=== PATIENT | male | born 1940 | race Caucasian/White ===

== ENCOUNTER → 2017-07-12 09:03 | Outpatient (CLI) | payer MEDICARE, SELFPAY | PROVIDERS: Family Provider Family Medicine; PCP Family Medicine; Visit Provider Urology | DX: Z12.5 Encounter for screening for malignant neoplasm of prostate (principal) | CPT/HCPCS: 36415; 84153 ==

== ENCOUNTER → 2018-04-29 16:45 | Outpatient (CLI) | payer MEDICARE, SELFPAY ==
[2018-01-29 13:19] VITALS: BMI 31.5
== END ==
PROVIDERS: Family Provider Family Medicine; PCP Family Medicine; Referring Provider Urology; Visit Provider Urology
DX: R31.9 Hematuria, unspecified (principal)
CPT/HCPCS: 87086

== ENCOUNTER 2018-08-23 08:33 | Day surgery (SDC) | payer MEDICARE, SELFPAY ==
--- NOTE | 2018-08-09 03:03 | HP_ITS ---
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 Is patient in pain?: No Allergies amoxicillin [From Augmentin] Allergy (Verified 08/09/18 13:23) Rash clavulanic acid [From Augmentin] Allergy (Verified 08/09/18 13:23) Rash erythromycin base Allergy (Verified 08/09/18 13:23) Rash Penicillins Allergy (Verified 08/09/18 13:23) Rash ranitidine [From Zantac] Adverse Reaction (Verified 08/09/18 13:23) Upset Stomach Medications Multivitamin [Daily Multiple Vitamin] 1 ea PO DAILY 09/22/16 [History Confirmed 08/09/18] [place]-3 Fatty Acids [Fish Oil] 500 mg PO DAILY 09/22/16 [History Confirmed 08/09/18] lisinopril 20 mg tablet 20 mg PO DAILY #90 tab 01/18/18 [Rx Confirmed 08/09/18] metoprolol succinate ER 50 mg tablet,extended release 24 hr 50 mg PO DAILY #90 tab 01/18/18 [Rx Confirmed 08/09/18] pravastatin 40 mg tablet 40 mg PO DAILY #90 tab 01/18/18 [Rx Confirmed 08/09/18] finasteride 5 mg tablet 5 mg PO DAILY #90 tab 01/23/18 [Rx Confirmed 08/09/18] aspirin 81 mg chewable tablet 81 mg PO .QOD tab 01/29/18 [History Confirmed 08/09/18] pimecrolimus 1 % topical cream 1 applic TOPICAL BID #30 g 01/29/18 [Rx Confirmed 08/09/18] oxybutynin chloride 5 mg tablet 5 mg PO DAILY 06/12/18 [History Confirmed 08/09/18] [facility] Medical History (Updated 08/09/18 @ 13:21 by Tere Pompa) History of skin cancer (Acute) Seasonal allergies (Chronic) Hyperlipemia (Chronic) Hypertension (Chronic) history diamante procedure (Acute) Surgical History (Updated 08/09/18 @ 13:21 by Tere Pompa) History of transurethral resection of prostate (Acute) Status post Mohs surgery (Acute) Family History Aunt Myocardial infarction, Onset Age: 60 Mother Cancer skin Breast cancer Social History (Updated 08/09/18 @ 15:04 by Kamlesh Navarro MD) Smoking Status: Current every day smoker alcohol intake: current alcohol intake frequency: 0-2 drinks per day what type of physical activity do you participate in: walking frequency: daily HPI HPI HPI: DAVE MARTINEZ, is a 77 M who presents to the office today for HPI HPI Surgical H&P: Yes HPI: DAVE MARTINEZ, is a 77 M who presents to the office today for bloody stools and change in stool caliber. Patient notes that he had last colonoscopy [address] Garrison. At that time polyps were found. He was recommended to have a repeat in 5 years. Patient also notes that occasionally he has bright red blood in his stool. He is also noticed that he has been having rectal spasming and he says that his stool caliber has changed. ROS General General: No weight change, appetite, fatigue, colon cancer, breast cancer or weakness HEENT HEENT: No difficulty swallowing, eye injury, eye surgery, swollen glands or hoarseness Endo Endocrine: No thyroid disease, diabetes mellitus, thyroid cancer, Hair loss, heat intolerance or cold intolerance Skin Skin: Yes rash; no changing moles Breast Breast: No left breast lump, right breast lump, nipple discharge, breast pain, abnormal mammogram, abnormal US or breast enlargement Musc Musculoskeletal: No back problems, arthritis, rheumatoid arthritis, gout or joint pain Cardio Cardiovascular: Yes high blood pressure; no murmur, pacemaker, heart disease, atrial fibrillation, heart attack, heart stent, palpitations, shortness of breat with exertion or chest pain Psych Psychiatric: Yes anxiety; no depression or hearing voices Resp Respiratory: No shortness of breath, No sleep apnea, No cough, No COPD, No asthma, No emphysema, No wheezing Gastro Gastrointestinal: No abdominal pain, No nausea or vomiting, No diarrhea, Yes constipation, Yes blood in stool, No acid reflux, No hemorrhoids, No ulcers, No gallbladder problem, No black,tarry stools Additional Details: Stool caliber change Abhay Hematologic: No blood thinners, No blood disorders, No bleeding, No anemia, No blood clots Neuro Neurologic: No system reviewed and no additional complaints, except as docu, No as per HPI, No abnormal walking, No abnormal hearing, No abnormal movements, No abnormal speech, No behavioral changes, No burning sensations, No confusion, No seizure-like activity, No unsteadiness, No dizziness, No localized weakness, No frequent falls, No headache(s), No lack of coordination, No loss of vision, No memory loss, Yes numbness, No other visual disturbances, No radiating pain, No restless legs, No sensory deficit, No fainting, Yes tingling, No tremor(s), No weakness, No other Exam Const General: cooperative Orientation: alert, oriented x3 Chest Breast Palpation: No nipple discharge Resp Effort & Inspection: normal respiratory effort Auscultation: clear to auscultation bilaterally Cardio Rate: regular rate Rhythm: regular rhythm Heart Sounds: no murmurs GI Inspection: non-distended Palpation: soft, nontender Assessment & Plan Problems 1. Rectal pressure R19.8 2. Rectal hemorrhage K62.5 3. Change in stool caliber R19.5 Plan The patient has bright red bleeding as well as rectal spasming and stool caliber changing. He has a history of polyps in the past. Recommend colonoscopy. I explained endoscopy in detail to the patient. I explained the risks including but not limited to stroke or heart attack with anesthesia, perforation of the GI tract, bleeding, infection. I explained that any of these could necessitate further emergency surgery. The patient understands and all questions were answered sufficiently. The patient wishes to proceed with procedure. Kamlesh Navarro MD Pager: [facility] [address] [place] [address], [address] [place] [address] Office: Orders Orders: Colonoscopy Today K62.5, R19.5, R19.8 Coding Level of Care Code Off vis,new,level 3 Diagnoses Rectal pressure R19.8 Rectal hemorrhage K62.5 Change in stool caliber R19.5 08/09/18 2248 <Electronically signed by Kamlesh tavera MD> Date _ Kamlesh Navarro MD I have re-examined the patient. There are no clinical changes since date of exam.
[2018-08-09 13:23] VITALS: BMI 31.5
[2018-08-23 08:52] VITALS: BP 142/87; PULSE 125; RESP 18; TEMP 36; O2SAT 97; BMI 30.7
--- NOTE | 2018-08-23 09:45 | COLBX_PTH ---
PATIENT: DAVE MARTINEZ LOC: EN U#:[id number] AGE/SX: 77/M ROOM: RE08/23/[address]: Dr. Kamlesh Navarro MD : 1940 BED: DIS: 08/23/2018 SPEC #: [id number] RECD: 08/23/18 10:57 STATUS: VAN ALLEN #: [id number] ELIZABETH: 08/23/18 09:[address]: Kamlesh Navarro DEPT: SURGICAL PATHOLOGY RECD BY: Joseph Hernandez ENTERED: 08/23/18 15:13 SP TYPE: COLON BX OT DR: Dr. Kong Richardson, Tissues: A - Descending colon B - Sigmoid colon biopsy Procedures: Surgery Specimen Level IV HEADER OPERATION: Colonoscopy (MAC) PRE-OP DIAGNOSIS: Anal spasms, change in stool caliber TISSUE SUBMITTED: A - Descending colon polyp, B - Sigmoid colon polyp MICROSCOPIC DIAGNOSIS A. Descending colon polyp, biopsy: Tubular adenoma. B. Sigmoid colon polyp, biopsy: Tubular adenoma. SJ:carly 08/26/18 MICROSCOPIC DESCRIPTION Slides are reviewed. GROSS DESCRIPTION A - Received in fixative is one container labeled with the patient's name and designated descending colon polyp. The specimen consists of a polypoid fragment of light kelly soft tissue measuring 1 x 0.6 x 0.5 cm. The specimen is bisected and totally submitted in one cassette. B - Received in fixative is one container labeled with the patient's name and designated sigmoid colon polyp. The specimen consists of one irregular fragment of light kelly soft tissue that measures 0.2 x 0.2 x 0.1 cm. The specimen is totally submitted in one cassette. / AM:carly 08/23/18 TC:1 CPT: 12631 x2
[2018-08-23 09:58] VITALS: BP 142/87; BP 86/64; PULSE 102; RESP 16; TEMP 36.5; O2SAT 97
--- NOTE | 2018-08-23 10:03 | OP.ENDO_ITS ---
08/23/2018 Kong Richardson Re : Colonoscopy procedure for Tha Dikc Dear Dr. Richardson This procedure was performed on Thursday, August 23, 2018. My impressions and recommendations are as follows: Impressions : - Two polyps in the sigmoid colon and in the descending colon, removed with a hot snare. Resected and retrieved. - The examination was otherwise normal on direct and retroflexion views. - Diverticulosis in the sigmoid colon. Recommendations : - Discharge patient to home. - Resume previous diet. - Continue present medications. - Resume aspirin at prior dose tomorrow. - Physician's office will call you with pathology results and recommendations for when to repeat colonoscopy. - Repeat colonoscopy after studies are complete for surveillance. My findings are described in the full procedure note, which is enclosed. If I can be of further assistance, please feel free to contact me at Doctor phone number(s): , Work: . Sincerely, Kamlesh Navarro MD 08/23/2018 10:03:10 AM This report has been signed electronically.
[2018-08-23 10:05] VITALS: BP 142/87; BP 84/65; PULSE 102; RESP 16; O2SAT 97
[2018-08-23 10:10] VITALS: BP 100/68; BP 142/87; PULSE 91; RESP 16; O2SAT 98
[2018-08-23 10:13] VITALS: BP 118/79; BP 142/87; PULSE 95; TEMP 36.6; O2SAT 97
[2018-08-23 11:51] VITALS: BP 142/87
== END 2018-08-23 10:55 | disposition home or self-care (01) ==
LOC: EN 08:33 → AC 08:35
PROVIDERS: Family Provider Family Medicine; PCP Family Medicine; Referring Provider Surgery; Visit Provider Surgery
PROC: 0DJD8ZZ Inspection of Lower Intestinal Tract, Via Natural or Artificial Opening Endoscopic (ICD-10-PCS; CPT 45378; principal; 2018-08-23 09:40)
DX: D12.4 Benign neoplasm of descending colon (principal); D12.5 Benign neoplasm of sigmoid colon; K57.30 Diverticulosis of large intestine without perforation or abscess without bleeding; E78.00 Pure hypercholesterolemia, unspecified; I10 Essential (primary) hypertension; Z85.828 Personal history of other malignant neoplasm of skin; Z79.82 Long term (current) use of aspirin; Z79.899 Other long term (current) drug therapy; F17.200 Nicotine dependence, unspecified, uncomplicated
CPT/HCPCS: 45385; 88305; J7120; J2405

== ENCOUNTER → 2019-02-05 10:04 | Outpatient (CLI) | payer MEDICARE, SELFPAY ==
[2019-02-05 09:24] VITALS: BMI 31.2
[2019-02-05 12:35] LABS: ALB/GLOB Ratio 0.9 RATIO (0.9-2.4); AST(SGOT) 28 U/L (15-37); Alanine Aminotransfer ALT/SGPT 40 U/L (16-61); Albumin, Serum 3.7 g/dL (3.2-5.0); Alkaline Phosphatase 171 U/L (45-117); Anion Gap 6 (5-15); BUN 14 mg/dL (7-18); BUN/Creat Ratio 14.7 RATIO (10-20); Chloride 103 mmol/L (98-107); Cholesterol 187 mg/dL (200); Creatinine, Serum 0.96 mg/dL (0.70-1.30); EST Glomerular Filtration Rate 81 mL/min (>60); Est Glom Filt Rate - Afr Amer 98 mL/min (>60); Glucose 91 mg/dL (74-106); High Density Lipoprotein 63 mg/dL; Protein, Total 7.7 g/dL (6.4-8.2); Sodium Level 139 mmol/L (136-145); Triglycerides 205 mg/dL; Very Low Density Lipoprotein 41 mg/dL (5-40)
== END ==
PROVIDERS: Family Provider Family Medicine; PCP Family Medicine; Visit Provider Family Medicine
DX: I10 Essential (primary) hypertension (principal); E78.5 Hyperlipidemia, unspecified
CPT/HCPCS: 36415; 80053; 80061

== ENCOUNTER → 2020-06-02 12:10 | Outpatient (CLI) | payer MEDICARE, SELFPAY ==
[2020-06-02 11:10] VITALS: BMI 30.4
[2020-06-02 15:30] LABS: ALB/GLOB Ratio 1.1 RATIO (0.9-2.4); AST(SGOT) 38 U/L (15-37); Alanine Aminotransfer ALT/SGPT 43 U/L (16-61); Albumin, Serum 3.7 g/dL (3.2-5.0); Alkaline Phosphatase 242 U/L (45-117); Anion Gap 1 (5-15); BUN 12 mg/dL (7-18); BUN/Creat Ratio 13.2 RATIO (10-20); Calcium,Total 8.8 mg/dL (8.5-10.1); Chloride 105 mmol/L (98-107); Cholesterol 208 mg/dL (200); Creatinine, Serum 0.91 mg/dL (0.70-1.30); EST Glomerular Filtration Rate 86 mL/min (>60); Est Glom Filt Rate - Afr Amer 103 mL/min (>60); Globulin 3.4 g/dL (2.2-4.2); Glucose 101 mg/dL (74-106); High Density Lipoprotein 66 mg/dL; PSA,Total- Diagnostic 0.53 ng/mL (0.0-4.0); Potassium 4.5 mmol/L (3.5-5.1); Protein, Total 7.1 g/dL (6.4-8.2); Sodium Level 138 mmol/L (136-145); Triglycerides 233 mg/dL; Very Low Density Lipoprotein 47 mg/dL (5-40)
== END ==
PROVIDERS: PCP Family Medicine; Referring Provider Family Medicine; Visit Provider Family Medicine
DX: E78.5 Hyperlipidemia, unspecified (principal); N40.0 Benign prostatic hyperplasia without lower urinary tract symptoms
CPT/HCPCS: 36415; 80053; 80061; 84153

== ENCOUNTER → 2020-12-23 12:46 | Outpatient (CLI) | payer MEDICARE, SELFPAY ==
--- NOTE | 2020-12-23 12:49 | RAD_ITS ---
STUDY: X-RAY CHEST REASON FOR EXAM: Male, 80 years old. Chronic cough. TECHNIQUE: PA and lateral views of the chest. COMPARISON: None. FINDINGS: The lungs are well expanded. No acute infiltrate or mass. There is no demonstrated pleural abnormality. Normal size heart. Normal mediastinum and olivier. Normal visualized pulmonary arteries. There is atherosclerotic calcification of the aortic arch with tortuosity. There are diffuse degenerative changes of the visualized thoracic spine. There is degenerative osteoarthritis of the bilateral shoulders. There is no demonstrated abnormality of the visualized soft tissue structures of the upper abdomen. RAD/Chest PA and Lateral IMPRESSION: Degenerative changes, as described above. No demonstrated acute cardiopulmonary process. Electronically Signed: Isaak Waldron DO at 18:52 EDT Tel [phone], Service support ,
== END ==
PROVIDERS: PCP Family Medicine; Referring Provider Family Medicine; Visit Provider Family Medicine
DX: R05.3 Chronic cough (principal)
CPT/HCPCS: 71046

== ENCOUNTER → 2021-06-29 | Outpatient (CLI) | payer MEDICARE, SELFPAY ==
[2021-06-29 15:48] LABS: ALB/GLOB Ratio 0.8 RATIO (0.9-2.4); AST(SGOT) 40 U/L (15-37); Alanine Aminotransfer ALT/SGPT 43 U/L (16-61); Albumin, Serum 3.5 g/dL (3.2-5.0); Alkaline Phosphatase 278 U/L (45-117); Anion Gap 5 (5-15); BUN 13 mg/dL (7-18); BUN/Creat Ratio 14.3 RATIO (10-20); Calcium,Total 9.2 mg/dL (8.5-10.1); Chloride 105 mmol/L (98-107); Cholesterol 200 mg/dL (200); Creatinine, Serum 0.91 mg/dL (0.70-1.30); EST Glomerular Filtration Rate 85 mL/min (>60); Est Glom Filt Rate - Afr Amer 103 mL/min (>60); Globulin 4.2 g/dL (2.2-4.2); Glucose 111 mg/dL (74-106); High Density Lipoprotein 63 mg/dL; Potassium 4.3 mmol/L (3.5-5.1); Protein, Total 7.7 g/dL (6.4-8.2); Sodium Level 138 mmol/L (136-145); Triglycerides 243 mg/dL; Very Low Density Lipoprotein 49 mg/dL (5-40)
== END | disposition home or self-care (01) ==
LOC: BIMLAB 12:03
PROVIDERS: PCP Family Medicine; Referring Provider Family Medicine; Visit Provider Family Medicine
DX: I10 Essential (primary) hypertension (principal); E78.2 Mixed hyperlipidemia
CPT/HCPCS: 36415; 80053; 80061

== ENCOUNTER 2022-01-03 14:04 | Outpatient (CLI) | payer MEDICARE, SELFPAY ==
[2022-01-03 15:42] LABS: AST(SGOT) 45 U/L (15-37); Alanine Aminotransfer ALT/SGPT 57 U/L (16-61); Albumin, Serum 3.7 g/dL (3.2-5.0); Alkaline Phosphatase 343 U/L (45-117); Globulin 4.2 g/dL (2.2-4.2); Protein, Total 7.9 g/dL (6.4-8.2)
== END 2022-01-03 23:59 | disposition home or self-care (01) ==
LOC: BIMLAB 14:05
PROVIDERS: PCP Family Medicine; Referring Provider Family Medicine; Visit Provider Family Medicine
DX: R74.8 Abnormal levels of other serum enzymes (principal)
CPT/HCPCS: 36415; 80076

== ENCOUNTER 2022-01-09 10:34 | Outpatient (CLI) | payer MEDICARE, SELFPAY ==
--- NOTE | 2022-01-09 10:38 | RAD_ITS ---
EXAM: XR RIGHT TIBIA AND FIBULA, 2 VIEWS CLINICAL INDICATION: elevated Alk phos TECHNIQUE: Frontal and lateral views of the right tibia and fibula. This report was created using [email or web address] report generation technology. COMPARISON: None. FINDINGS: BONES/JOINTS: No acute abnormality. SOFT TISSUES: Normal. No soft tissue swelling or gas. No radiopaque foreign body. RAD/Tibia & Fibula 2 Views IMPRESSION: Intact right tibia and fibula. Electronically Signed: Surjit Alexander MD at 12:28 EST ,
--- NOTE | 2022-01-09 10:38 | RAD_ITS ---
EXAM: XR ABDOMEN, 2 VIEWS AND XR CHEST, 1 VIEW CLINICAL INDICATION: elevated alk phos TECHNIQUE: Frontal view of the chest, frontal view of the abdomen/pelvis and upright or decubitus view of the abdomen. This report was created using [employer] report generation technology. COMPARISON: None. FINDINGS: CHEST: LUNGS AND PLEURAL SPACES: Hyperinflation of the upper lobes suggesting underlying emphysema. No pneumothorax. No effusion. HEART: Normal. Normal heart size. MEDIASTINUM: No mediastinal or hilar mass. ABDOMEN: INTRAPERITONEAL SPACE: No free air. GASTROINTESTINAL TRACT: Air-fluid levels noted within minimally distended large and small bowel loops consistent with mild ileus. ORGANS: Unremarkable as visualized. No organomegaly. No abnormal calcifications. TUBES, LINES AND DEVICES: None. BONES/JOINTS: No acute abnormality. SOFT TISSUES: No acute findings. RAD/Acute Abdomen Inc Chest IMPRESSION: 1. Mild large and small bowel ileus. 2. COPD. Electronically Signed: Surjit Alexander MD at 15:15 EST ,
--- NOTE | 2022-01-09 10:40 | RAD_ITS ---
EXAM: XR SKULL, 1, 2 OR 3 VIEWS CLINICAL INDICATION: elevated Alk phos TECHNIQUE: Frontal and/or lateral views of the skull. This report was created using [employer] report generation technology. COMPARISON: None. FINDINGS: BONES/JOINTS: No acute abnormality. SINUSES: No acute abnormality. SOFT TISSUES: Normal. No soft tissue swelling or gas. RAD/Skull less than 4 Views IMPRESSION: Normal skull. Electronically Signed: Surjit Alexander MD at 12:29 EST ,
--- NOTE | 2022-01-09 10:41 | RAD_ITS ---
EXAM: XR LEFT TIBIA AND FIBULA, 2 VIEWS CLINICAL INDICATION: elevated Alk phos TECHNIQUE: Frontal and lateral views of the left tibia and fibula. This report was created using [employer] report generation technology. COMPARISON: None. FINDINGS: BONES/JOINTS: No acute abnormality. SOFT TISSUES: Normal. No soft tissue swelling or gas. No radiopaque foreign body. RAD/Tibia & Fibula 2 Views IMPRESSION: Intact left tibia and fibula. Electronically Signed: Surjit Alexander MD at 12:29 EST ,
[2022-01-09 12:30] LABS: Vitamin D,25 Hydroxy 42.7 ng/mL
[2022-01-09 12:35] LABS: Thyroid Stim Hormone (TSH) 0.85 uIU/mL (0.358-3.74)
== END 2022-01-09 23:59 | disposition home or self-care (01) ==
LOC: RAD 10:37
PROVIDERS: PCP Family Medicine; Referring Provider Family Medicine; Visit Provider Family Medicine
DX: R74.8 Abnormal levels of other serum enzymes (principal); I10 Essential (primary) hypertension
CPT/HCPCS: 36415; 70250; 73590; 74022; 82306; 84443

== ENCOUNTER → 2022-07-13 | Outpatient (CLI) | payer MEDICARE, SELFPAY | END | disposition home or self-care (01) | LOC: BIMLAB 16:25 | PROVIDERS: PCP Family Medicine; Referring Provider Family Medicine; Visit Provider Family Medicine | DX: D64.9 Anemia, unspecified (principal) | CPT/HCPCS: 36415; 85610 ==

== ENCOUNTER → 2022-10-18 | Outpatient (CLI) | payer MEDICARE, SELFPAY ==
[2022-10-18 15:10] LABS: Prothrombin Time (Protime)PT. 13.3 SECONDS (11.7-14.9)
[2022-10-18 15:47] LABS: ALB/GLOB Ratio 0.9 RATIO (0.9-2.4); AST(SGOT) 46 U/L (15-37); Alanine Aminotransfer ALT/SGPT 50 U/L (16-61); Albumin, Serum 3.6 g/dL (3.2-5.0); Alkaline Phosphatase 415 U/L (45-117); Anion Gap 4 (5-15); BUN 9 mg/dL (7-18); BUN/Creat Ratio 10.7 RATIO (10-20); Calcium,Total 9.2 mg/dL (8.5-10.1); Chloride 104 mmol/L (98-107); Creatinine, Serum 0.84 mg/dL (0.70-1.30); EST Glomerular Filtration Rate 92 mL/min (>60); Est Glom Filt Rate - Afr Amer 112 mL/min (>60); Glucose 100 mg/dL (74-106); Potassium 4.1 mmol/L (3.5-5.1); Protein, Total 7.6 g/dL (6.4-8.2); Sodium Level 137 mmol/L (136-145)
== END | disposition home or self-care (01) ==
LOC: BIMLAB 14:01
PROVIDERS: PCP Family Medicine; Visit Provider Family Medicine
DX: R23.3 Spontaneous ecchymoses (principal); R74.8 Abnormal levels of other serum enzymes
CPT/HCPCS: 36415; 80053; 85610

== ENCOUNTER → 2023-08-07 | Outpatient (CLI) | payer MEDICARE, SELFPAY ==
[2023-08-07 17:01] LABS: ALB/GLOB Ratio 0.9 RATIO (0.9-2.4); AST(SGOT) 47 U/L (15-37); Alanine Aminotransfer ALT/SGPT 47 U/L (16-61); Albumin, Serum 3.6 g/dL (3.2-5.0); Alkaline Phosphatase 357 U/L (45-117); Anion Gap 8 (5-15); BUN 14 mg/dL (7-18); BUN/Creat Ratio 18.8 RATIO (10-20); Calcium,Total 9.3 mg/dL (8.5-10.1); Chloride 108 mmol/L (98-107); Cholesterol 181 mg/dL (200); Creatinine, Serum 0.74 mg/dL (0.70-1.30); EST Glomerular Filtration Rate 107 mL/min (>60); Est Glom Filt Rate - Afr Amer 129 mL/min (>60); Globulin 3.9 g/dL (2.2-4.2); Glucose 108 mg/dL (74-106); High Density Lipoprotein 80 mg/dL; Potassium 4.2 mmol/L (3.5-5.1); Protein, Total 7.5 g/dL (6.4-8.2); Sodium Level 139 mmol/L (136-145); Triglycerides 113 mg/dL; Very Low Density Lipoprotein 23 mg/dL (5-40)
== END | disposition home or self-care (01) ==
LOC: BIMLAB 14:28
PROVIDERS: PCP Family Medicine; Referring Provider Family Medicine; Visit Provider Family Medicine
DX: E78.5 Hyperlipidemia, unspecified (principal); I10 Essential (primary) hypertension
CPT/HCPCS: 36415; 80053; 80061

== ENCOUNTER → 2024-11-05 | Outpatient (CLI) | payer MEDICARE, SELFPAY ==
[2024-11-05 15:22] LABS: Hematocrit 46.0 % (40-54); Hemoglobin 15.5 g/dL (13.0-16.5); Immature Granulocytes Count 0.020 X10^3/uL (0.0-0.0); Mean Corp Hgb Conc 33.7 g/dL (32-36); Mean Corpuscular Volume 96.6 fL (80-94); Mean Platelet Vol. 9.9 fl (6.2-12.0); NRBC Flagged by Analyzer 0 % (0-5); Platelet Count 192 K/mm3 (150-450); RBC Distribution Width CV 14.6 % (11.6-14.6); RBC Distribution Width SD 52.3 fl (35.1-43.9); Red Blood Count 4.76 M/mm3 (4.6-6.2); White Blood Count 4.9 K/mm3 (4.4-11.0)
[2024-11-05 16:17] LABS: AST(SGOT) 61 U/L (<=37); Alanine Aminotransfer ALT/SGPT 53 U/L (<=46); Albumin, Serum 4.2 g/dL (3.4-4.8); Alkaline Phosphatase 291 U/L (40-129); Anion Gap 13 (5-15); BUN 13 mg/dL (4-19); BUN/Creat Ratio 16.9 RATIO (10-20); Calcium,Total 9.2 mg/dL (7.6-11.0); Carbon Dioxide 23.1 mmol/L (21.0-32.0); Chloride 102 mmol/L (98-108); Cholesterol 196 mg/dL (<=200); Globulin 3.0 g/dL (2.2-4.2); Glucose 110 mg/dL (70-99); Low Density Lipoprotein Calc. 71 mg/dL; Potassium 4.4 mmol/L (3.3-5.1); Triglycerides 131 mg/dL; Very Low Density Lipoprotein 26 mg/dL (5-40); cholesterol:hdl ratio screen 1.98
--- OUTSIDE RECORDS SUMMARY | 2024-11-05 20:54 | XMS RPT_ITS | CCD ---
Author Organization [facility] Care Team Providers Care Solution Mixer Name Role Phone Unavailable Unavailable Unavailable Wood, Alin C Unavailable Unavailable Wood, Alin C Unavailable Unavailable Wood, Alin C Unavailable Unavailable Wood, Alin C Unavailable Unavailable WOOD, ALIN C Attending Unavailable WOOD, ALIN C Attending Unavailable Dr. Caleb Richardson Primary Care Provider [phone] Dr. [place] Richardson Attending Provider [phone] Dr. [place] Richardson Referring Provider [phone] Pending, Provider Primary Care Unavailable Dr. Bassam Stallworth Attending Unavail able Dr. [place] Richardson Primary Care Provider [phone] [phone] Dr. [place] Richardson Attending Provider [phone] Dr. [place] Richardson Referring Provider [phone] Dr. [place] Richardson Primary Care Provider [phone] Dr. [place] Richardson Attending Provider [phone] Dr. [place] Richardson Referring Provider [phone] BASSAM STALLWORTH Attending Unavailable CALEB RICHARDSON R Primary Care Unavailable Caleb Richardson DO Primary Care Provider [place]aleb Richardson Referring Unavailable Brown, Caleb R Primary Care Unavailable Dakota Howe Attending Unavailable Brown, Caleb R Primary Care Unavailable Brown, Caleb R Attending Unavailable Brown, Caleb R Referring Unavailable Brown, Caleb R Primary Care Unavailable Brown, Caleb R Attending Unavailable Brown, Caleb R Referring Unavailable Brown, Caleb R Primary Care Unavailable Brown, Caleb R Attending Unavailable Brown, Caleb R Referring Unavailable Brown, Caleb R Primary Care Unavailable Brown, Caleb R Attending Unavailable Dylan, Caleb R Referring Unavailable Dr. [place] Richardson DO Primary Care Physician Dr. [place] Richardson DO Attending Physician Dr. [place] Richardson DO Referring Provider [phone] Allergies Allergy Classification Reported Allergen(s) Allergy Type Date of Onset Reaction(s) Facility (5 sources) Amoxicillin Drug Allergy 2 Rash [facility] (5 sources) Clavulanate Drug Allergy 2 Rash [facility] (5 sources) Erythromycin Drug Allergy 2 Rash [facility] (5 sources) Penicillins Allergy to substance 2 Rash [facility] (5 sources) raNITIdine Drug Allergy 2 Upset Stomach [facility] (1 source) Amoxicillin Drug Allergy 5 [facility]ository (1 source) Clavulanate Drug Allergy 5 [facility] (1 source) Erythromycin Drug Allergy 5 [facility] (1 source) metroNIDAZOLE Drug Allergy 5 [facility] (1 source) Penicillins Drug allergy (disorder) 5 [facility] (1 source) raNITIdine Drug Allergy 5 [facility] (1 source) metroNIDAZOLE Drug Allergy 5 Itching [facility] Medications Current Medications Medication Drug Class(es) Dates Sig (Normalized) Sig (Original) finasteride 5 mg oral tablet (20 sources) 5-alpha Reductase Inhibitor Start: 08-06-2019 End: 05-07-2024 take 1 tablet by mouth once daily Start: 09-22-2016 End: 01-23-2018 take 1 tablet by mouth once daily Finasteride 5 mg tablet Discontinued 5 mg PO DAILY 90 August 21, 2017 12:37pm January 23, 2018 9:30am 24 hr metoprolol succinate 50 mg extended release oral tablet (20 sources) beta-Adrenergic Anh Start: 09-22-2016 End: 05-07-2024 take 1 tablet by mouth once daily Multivitamin preparation (4 sources) Start: 09-22-2016 Multivitamin Active 1 EACH PO DAILY September 22, 2016 12:00am Start: 09-22-2016 Multivitamin A ctive 1 EACH PO DAILY September 21, 2016 11:00pm pravastatin sodium 40 mg oral tablet (20 sources) HMG-CoA Reductase Inhibitor Start: 09-22-2016 End: 05-07-2024 take 1 tablet by mouth once daily sulfacetamide sodium 100 mg/ml ophthalmic solution (1 source) Sulfonamide Antibacterial Start: 05-07-2024 take 1 drop(s) into the eye(s) every four hours triamcinolone acetonide 1 mg/ml topical cream (2 sources) Corticosteroid Start: 11-07-2023 Start: 10-30-2023 End: 10-30-2023 inject 80 mg by intramuscular injection once 80 mg, intramuscular, Once, On Sun10/30/23 at 2030, For 1 dose 24 hr upadacitinib 15 mg ext ended release oral tablet (1 source) Start: 05-07-2024 take 1 tablet by once daily Completed/Discontinued Medications Medication Drug Class(es) Dates Sig (Normalized) Sig (Original) aspirin 81 mg chewable tablet (10 sources) Platelet Aggregation Inhibitor, Nonsteroidal Anti-inflammatory Drug Start: 01-29-2018 End: 12-23-2020 take 1 tablet by mouth every other day Aspirin 81 mg tablet,chewable Discontinued 81 mg PO .QOD January 29, 2018 2:18pm December 23, 2020 11:25am Start: 09-22-2016 End: 01-29-2018 take 1 tablet by mouth once daily Aspirin 81 MG tablet,chewable Discontinued 81 mg PO DAILY September 22, 2016 12:00am January 29, 2018 2:18pm Bfwyqy-Hfdcfjiskuq-Swgk-Nahc o3 (4 sources) Start: 08-06-2019 End: 01-07-2020 take 1 spray(s) nasal route twice daily Levbkr-Jlwgydzjjgx-Ycdx-Nahco3 Discontinued 1 SPRAY INTRANASAL TWICE A DAY August 06, 2019 12:00am January 07, 2020 11:30am administer into each nostril Start: 08-06-2019 End: 01-07-2020 take 1 spray(s) nasal route twice daily Adwedl-Yikwmfcmxjz-Gyen-Nahco3 Discontin ued 1 SPRAY INTRANASAL TWICE A DAY August 05, 2019 11:00pm January 07, 2020 10:30am administer into each nostril Whwhfd-Tpscqputedz-Nhiq-Nahc o3 137 mcg-50 mcg- 0.9 % kit,spray suspension and spray (1 source) Start: 08-06-2019 End: 01-07-2020 Uphfgv-Euvmrblgybo-Qfeg-Nahc o3 137 mcg-50 mcg- 0.9 % kit,spray suspension and spray Discontinued 1 NMA INTRANASAL TWICE A DAY 1 2 August 06, 2019 12:00am January 07, 2020 11:30am administer into each nostril azelastine hydrochloride 0.1 37 mg/actuat metered dose nasal spray (15 sources) Histamine-1 Receptor Antagonist Start: 01-07-2020 End: 12-23-2020 Azelastine 137 mcg (0.1 %) aerosol,spray Discontinued 1 NMA INTRANASAL TWICE A DAY December 23, 2020 12:00am December 23, 2020 11:48am administer into each nostril Start: 01-07-2020 End: 12-23-2020 take 1 spray(s) nasal route twice daily Azelastine Discontinued 1 SPRAY INTRANASAL TWICE A DAY December 23, 2020 12:00am December 23, 2020 11:48am administer into each nostril betamethasone 1 mg/ml topical lotion (12 sources) Corticosteroid Start: 11-28-2022 End: 11-07-2023 Betamethasone Valerate 0.1 % lotion Discontinued 1 NMA TOPICAL TWICE A DAY as needed for rash 60 3 May 09, 2023 1:50pm November 07, 2023 1:13pm Start: 08-06-2019 End: 01-04-2021 Betamethasone Valerate 0.1 % lotion Discontinued 1 NMA TOPICAL TWICE A DAY as needed for rash 60 3 October 26, 2020 10:03am January 04, 2021 9:26am ciprofloxacin 500 mg oral tablet (5 sources) Quinolone Antimicrobial Start: 09-30-2016 End: 08-20-2017 take 1 tablet by mouth twice daily Ciprofloxacin Hcl 500 MG tablet Discontinued 500 mg PO TWICE A DAY 14 0 September 30, 2016 12:00am August 20, 2017 3:45pm doxycycline hyclate 100 mg oral capsule (5 sources) Tetracycline-class Drug Start: 06-29-2021 End: 04-05-2022 take 1 capsule by mouth once daily Doxycycline Hyclate 100 mg capsule Discontinued 100 mg PO DAILY 10 0 June 29, 2021 12:00am April 05, 2022 2:10pm fluorouracil 50 mg/ml topical cream (1 source) Nucleoside Metabolic Inhibitor Start: 05-09-2023 End: 05-23-2023 Fluorouracil 5 % cream Discontinued 1 NMA TOPICAL TWICE A DAY 40 14 0 May 09, 2023 12:00am May 22, 2023 12:00am May 23, 2023 12:05am ibuprofen 800 mg oral tablet (3 sources) Nonsteroidal Anti-inflammatory Drug Start: 07-13-2022 End: 10-18-2022 take 1 tablet by mouth every six hours Ibuprofen 800 mg tablet Discontinued 800 mg PO EVERY 6 HOURS July 13, 2022 12:00am October 18, 2022 1:33pm levocetirizine dihydrochloride 5 mg oral tablet (5 sources) Histamine-1 Receptor Antagonist Start: 06-02-2020 End: 01-03-2022 take 1 tablet by mouth once daily Levocetirizine (Xyzal) 5 mg tablet Discontinued 5 mg PO DAILY 30 3 June 02, 2020 12:00am January 03, 2022 2:40pm lisinopril 20 mg oral tablet (20 sources) Angiotensin Converting Enzyme Inhibitor Start: 09-22-2016 End: 05-07-2024 Lisinopril 20 mg tablet Discontinued 0 .ROUTE .COMPLEX 90 3 November 02, 2022 10:31am May 07, 2024 2:08pm TAKE 1 TABLET EVERY DAY FOR HYPERTENSION metroNIDAZOLE 0.01 mg/mg topical gel (1 source) Nitroimidazole Antimicrobial Start: 12-20-2022 End: 02-08-2023 Metronidazole (Metrogel) 1 % gel Discontinued 1 NMA TOPICAL AT BEDTIME 60 0 December 20, 2022 12:00am February 08, 2023 4:58pm Multivitamin 1 EACH tablet (1 source) Start: 09-22-2016 End: 11-05-2024 Multivitamin 1 EACH tablet Discontinued 1 NMA PO DAILY September 22, 2016 12:00am November 05, 2024 1:12pm Babb 6-Wcv-Sjw-Fish Oil (4 sources) Start: 09-22-2016 End: 01-04-2021 take 500 mg by mouth once daily Babb 1-Dqc-Jng-Fish Oil Discontinued 500 MG PO DAILY September 22, 2016 12:00am January 04, 2021 9:26am Start: 09-22-2016 End: 01-04-2021 take 500 mg by mouth once daily Babb 1-Nje-Jdj-Fish Oil Discontinued 500 MG PO DAILY September 21, 2016 11:00pm January 04, 2021 8:26am Babb 8-Soe-Noj-Fish Oil 500 MG capsule,delayed release(DR/EC) (1 source) Start: 09-22-2016 End: 01-04-2021 take 1 capsule by mouth once daily Babb 8-Rbx-Cxl-Fish Oil 500 MG capsule,delayed release(DR/EC) Discontinued 500 mg PO DAILY September 22, 2016 12:00am January 04, 2021 9:26am oxybutynin chloride 5 mg oral tablet (5 sources) Cholinergic Muscarinic Antagonist Start: 06-12-2018 End: 01-07-2020 take 1 tablet by mouth once daily Oxybutynin Chloride 5 mg tablet Discontinued 5 mg PO DAILY June 12, 2018 12:00am January 07, 2020 11:38am pimecrolimus 10 mg/ml topical cream (10 sources) Calcineurin Inhibitor Immunosuppressant Start: 08-19-2018 End: 02-05-2019 apply 100 g topically twice daily as needed Pimecrolimus 100 GM cream Discontinued 1 NMA TOPICAL TWICE A DAY as needed for skin August 19, 2018 4:01pm February 05, 2019 10:26am do not use occlusive dressing Start: 01-29-2018 End: 02-05-2019 Pimecrolimus Discontinued 1 APPLIC TOPICAL TWICE A DAY August 19, 2018 4:01pm February 05, 2019 10:26am do not use occlusive dressing psyllium 400 mg oral capsule (5 sources) Start: 01-04-2021 End: 11-05-2024 Psyllium Husk (Daily Fiber) 0.4 gram capsule Discontinued 0.4 g PO DAILY January 04, 2021 1:00am November 05, 2024 1:12pm Problems Problem Classification Problem Date Documented Da te Episodic/Chronic Abdominal hernia (7 sources) Obstruction co-occurrent and due to right inguinal hernia; Translations: [Unilateral inguinal hernia, with obstruction, without gangrene, not specified as recurrent] Episodic Abdominal pain (1 source) Right upper quadrant pain; Translations: [Right upper quadrant pain] Onset: 07-10-2022 Episodic Coagulation and hemorrhagic disorders (6 sources) Easy bruising; Translations: [Spontaneous ecchymoses] 07-13-2022 Episodic Disorders of lipid metabolism (8 sources) Hyperlipidemia; Translations: [Hyperlipidemia, unspecified] Onset: 08-13-2023 01-29-2018 Chronic E Codes: Fall (1 source) Fall on and from ladder, initial encounter; Translations: [Fall on and from ladder, initial encounter] Onset: 07-10-2022 Episodic Esophageal disorders (5 sources) Gastric reflux; Translations: [Gastro-esophageal reflux disease without esophagitis] 02-05-2019 Chronic Essential hypertension (12 sources) Hypertensive disorder; Translations: [Essential (primary) hypertension] Onset: 05-07-2024 Chronic Hemorrhoids (5 sources) External hemorrhoids; Translations: [Residual hemorrhoidal skin tags] 02-05-2019 Episodic Inflammation; infection of eye (except that caused by tuberculosis or sexually transmitteddisease) (1 source) Conjunctivitis; Translations: [Unspecified conjunctivitis] 05-07-2024 Episodic Other gastrointestinal disorders (5 sources) Rectum finding; Translations: [Other specified symptoms and signs involving the digestive system and abdomen] 08-06-2018 Episodic Other gastrointestinal disorders (1 source) Constipation; Translations: [Constipation, unspecified] 05-09-2023 Episodic Other inflammatory condition of skin (1 source) Rosacea, unspecified; Translations: [Rosacea, unspecified] Onset: 05-07-2024 Chronic Other inflammatory condition of skin (1 source) Rosacea; Translations: [Rosacea, unspecified] 12-20-2022 Chronic Other injuries and conditions due to external causes (1 source) Unspecified injury of head, initial encounter; Translations: [Unspecified injury of head, initial encounter] Onset: 07-10-2022 Episodic Other liver diseases (5 sources) Alkaline phosphatase raised; Translations: [Abnormal levels of other serum enzymes] 01-03-2022 Episodic Other liver diseases (4 sources) Abnormal levels of other serum enzymes; Translations: [Other nonspecific abnormal serum enzyme levels] Episodic Other lower respiratory disease (5 sources) Chronic cough; Translations: [Chronic cough] 12-23-2020 Episodic Other lower respiratory disease (1 source) Pleurodynia; Translations: [Pleurodynia] Onset: 07-10-2022 Episodic Other male genital disorders (5 sources) Retrograde ejaculation; Translations: [Retrograde ejaculation] 01-07-2020 Episodic Other non-epithelial cancer of skin (9 sources) History of malignant neoplasm of skin; Translations: [Personal history of other malignant neoplasm of skin] Onset: 08-07-2023 02-05-2019 Episodic Comment on above: Basal Cell on Nose Other skin disorders (5 sources) Inflamed seborrheic keratosis; Translations: [Inflamed seborrheic keratosis] 08-06-2019 Episodic Other skin disorders (6 sources) Eruption; Translations: [Rash and other nonspecific skin eruption] 01-29-2018 Episodic Other skin disorders (5 sources) Inflamed seborrheic keratosis; Translations: [Inflamed seborrheic keratosis] Episodic Other skin disorders (2 sources) Rash and other nonspecific skin eruption; Translations: [Rash and other nonspecific skin eruption] Onset: 10-30-2023 Episodic Other upper respiratory disease (5 sources) Seasonal allergy; Translations: [Other seasonal allergic rhinitis] 08-20-2017 Chronic Other upper respiratory disease (1 source) Other seasonal allergic rhinitis; Translations: [Other seasonal allergic rhinitis] Onset: 05-07-2024 Chronic Sprains and strains (1 source) Strain of muscle, fascia and tendon of abdomen, initial encounter; Translations: [Strain of muscle, fascia and tendon of abdomen, init encntr] Onset: 07-10-2022 Episodic Superficial injury; contusion (1 source) Contusion of right front wall of thorax, initial encounter; Translations: [Contusion of right front wall of thorax, initial encounter] Onset: 07-10-2022 Episodic Results Test Name Value Interpretation Reference Range Facility Internal Medicine Office Vis annabel 05-07-2024 Internal Medicine Office Visit [facility] [address] [place] [address] OFFICE VISIT Date of Service: 05/07/24 MR#: [id number] Acct: [id number] Name: DAVE MARTINEZ Rep #: [id number] : 1940 Provider: Dr. Caleb finch, Age/Sex: 83/M Location: [facility] Status: Signed Intake Vital Signs 11/07/23 13:11 05/07/24 13:39 Height 5 ft 10 in 5 ft 10 in Weight: 185 lb 177 lb BMI 26.5 25.4 BP 130/70 H 130/78 H Blood Pressure Location Lt brachial Lt brachial Position Sitting Sitting Respiration 16 18 Pulse 77 76 Pulse Source Monitor Monitor Temp 96.9 F L 98.4 F Temp Source Temporal Temporal Pulse Oximetry (%) 97 97 Oxygen Delivery Method room air room air Intake Visit Reasons: 6 M FU Chief Complaint: 6 M FU Is patient in pain?: No Allergies amoxicillin (From Augmentin) Allergy (Verified 05/07/24 13:40) Rash clavulanic acid (From Augmentin) Allergy (Verified 05/07/24 13:40) Rash erythromycin base Allergy (Verified 05/07/24 13:40) Rash Penicillins Allergy (Verified 05/07/24 13:40) Rash metronidazole Adverse Reaction (Intermediate, Verified 05/07/24 13:40) Itching ranitidine (From Zantac) Adverse Reaction (Verified 05/07/24 13:40) Upset Stomach Medications ???Medication ???Instructions ???Recorded ???Confirmed ???Type multivitamin 1 ea PO DAILY 09/22/16 05/07/24 Hi story azelastine 137 mcg (0.1 %) nasal 1 spray intranasal BID #60 mL 06/0905/07/24 Rx spray psyllium husk 0.4 gram capsule 0.4 g PO DAILY 01/04/21 05/07/24 H istory (Daily Fiber) triamcinolone acetonide 0.1 % 1 applic topical BID 11/07/2304/19 History topical cream finasteride 5 mg tablet 5 mg PO DAILY #90 tabs 05/07/24 Rx metoprolol succinate 50 mg 50 mg PO DAILY blood pressure #90 05/07/24 05/07/24 Rx tablet,extended release 24 hr tabs pravastatin 40 mg tablet 40 mg PO DAILY cholesterol #90 tab s 05/07/24 05/07/24 Rx sulfacetamide sodium 10 % eye drops 1 drp ophthalmic (eye) Q4H #15 mL 05/07/24 05/07/24 Rx upadacitinib 15 mg tablet,extended 7.5 mg PO QDAY 05/07/24 05/07/24 History release 24 hr (Rinvoq) Have you fallen in the past year?: No Nurse's Note: pt has complaint of bulge in groin, feels pressure as if I have a hernia pt has c/o of redness and what he believes is pink eye in right eye PFSH Medical History (Updated 05/07/24 @ 14:[address] C[place] Richardson, DO) History of skin cancer Seasonal allergies Hyperlipemia Hypertension Surgical History Status post Mohs surgery History of transurethral resection of prostate Family History Aunt Myocardial infarction, Onset Age: 60 Mother Cancer skin Breast cancer Social History Smoking Status: Current every day smoker alcohol intake: current alcohol intake frequency: 0-2 drinks per day what type of physical activity do you participate in: walking frequency: daily HPI HPI Chief Complaint: 6 M FU Details: DAVE MARTINEZ, is a 83 M who presents to the office today for his 6-month check. He is complaining of a mattering right eye, a bulge in his right groin, and very easy bruisability. ROS Const Constitutional: No body ache, chills, excessive sweating, fatigue, fever(s), frequent falls, headache(s), snoring, weight change, sleep problems, abnormal sleep pattern or change in appetite Eyes Eyes: Positive for other (right eye redness ); No blurry vision, change in vision, eye pain or Light sensitivity ENT ENT: No abnormal hearing, ear or mastoid pain, tinnitus, nasal congestion, headache(s), neck pain or sore throat Resp Respiratory: No cough, shortness of breath, snoring or wheezing Cardio Cardiology: No chest pain at rest, chest pain with exertion, excessive sweating, shortness of breath, dyspnea on exertion, lightheadedness, orthopnea or palpitations Gastro GI: No abdominal pain, change in bowel habits, constipation, cramping, diarrhea, nausea/dyspepsia or vomiting Genitourinary Male: No burning urination, painful urination, urinary incontinence or urinary frequency Musc Musculoskeletal: No abnormal gait, joint pain, back pain, limited range of motion, neck pain, numbness or tingling Skin Skin: No dry skin, redness, lesions, itchy eyes, rash or wounds Neuro Neurology: No abnormal gait, abnormal hearing, frequent falls, headache(s), memory loss, numbness or tingling Psych Psychiatric: No abnormal sleep pattern, No anxiety, No change in appetite, No irritability, No memory loss and No Thoughts of harming yourself/Others Endo Endocrine: No cold intolerance, excessive sweating, fatigue, flushing, heat intolerance, increased thi (more content not included)... Normal [facility] Office Vis iton 11-07-2023 Internal Medicine Office Visit [facility] [address] [place] [address] [place] [address] OFFICE VISIT Date of Service: 11/07/23 MR#: [id number] Acct: [id number] Name: DAVE MARTINEZ Rep #: [id number] : 1940 Provider: Dr. Caleb finch, DO Age/Sex: 83/M Location[place] [facility] Status: Signed Intake Vital Signs 08/07/23 13:37 11/07/23 13:11 Height 5 ft 10 in 5 ft 10 in Weight: 184 lb 185 lb BMI 26.4 26.5 BP 120/66 130/70 H Blood Pressure Location Lt brachial Lt brachial Position Sitting Sitting Respiration 18 16 Pulse 79 77 Pulse Source Monitor Monitor Temp 97.6 F L 96.9 F L Temp Source Temporal Temporal Pulse Oximetry (%) 97 97 Oxygen Delivery Method room air room air Intake Visit Reasons: 3 M FU Chief Complaint: 3 M FU Is patient in pain?: No Allergies amoxicillin (From Augmentin) Allergy (Verified 11/07/23 13:12) Rash clavulanic acid (From Augmentin) Allergy (Verified 11/07/23 13:12) Rash erythromycin base Allergy (Verified 11/07/23 13:12) Rash Penicillins Allergy (Verified 11/07/23 13:12) Rash metronidazole Adverse Reaction (Intermediate, Verified 11/07/23 13:12) Itching ranitidine (From Zantac) Adverse Reaction (Verified 11/07/23 13:12) Upset Stomach Medications ???Medication ???Instructions ???Recorded ???Confirmed ???Type multivitamin 1 ea PO DAILY 09/22/16 11/07/23 History azelastine 137 mcg (0.1 %) nasal 1 spray intranasal BID #60 mL 12/23/20 11/07/23 Rx spray psyllium husk 0.4 gram capsule 0.4 g PO DAILY 01/04/21 11/07/23 History (Daily Fiber) lisinopril 20 mg tablet See Rx Instructions .Route 11/02/22 11/07/23 Rx .COMPLEX #90 tabs finasteride 5 mg tablet 5 mg PO DAILY #90 tabs 02/08/23 11/07/23 Rx pravastatin 40 mg tablet 40 mg PO DAILY cholesterol #90 tabs 02/08/23 11/07/23 Rx metoprolol succinate 50 mg 50 mg PO DAILY blood pressure #90 06/21/23 11/07/23 Rx tablet,extended release 24 hr tabs triamcinolone acetonide 0.1 % 1 applic topical BID 11/07/23 11/07/23 History topical cream Have you fallen in the past year?: No PFSH Medical History History of skin cancer Seasonal allergies Hyperlipemia Hypertension Surgical History Status post Mohs surgery History of transurethral resection of prostate Family History Aunt Myocardial infarction, Onset Age: 60 Mother Cancer skin Breast cancer Social History Smoking Status: Current every day smoker alcohol intake: current alcohol intake frequency: 0-2 drinks per day what type of physical activity do you participate in: walking frequency: daily HPI HPI Chief Complaint: 3 M FU Details: DAVE MARTINEZ, is a 83 M who presents to the office today for a 3-month follow-up exam. He had a severe allergic reaction in the emergency room called urticaria when he saw the supply person they called eczema and a course at this time the rash is virtually disappeared. He does not recall eating anything unusual or being in physical contact with anything that might of caused an allergic reaction. Other than the rash he has been doing quite well. ROS Const Constitutional: No body ache, chills, excessive sweating, fatigue, fever(s), frequent falls, headache(s), snoring, weight change, sleep problems, abnormal sleep pattern or change in appetite Eyes Eyes: No blurry vision, change in vision, eye pain or Light sensitivity ENT ENT: No abnormal hearing, ear or mastoid pain, tinnitus, nasal congestion, headache(s), neck pain or sore throat Resp Respiratory: No cough, shortness of breath, snoring or wheezing Cardio Cardiology: No chest pain at rest, chest pain with exertion, excessive sweating, shortness of breath, dyspnea on exertion, lightheadedness, orthopnea or palpitations Gastro GI: No abdominal pain, change in bowel habits, constipation, cramping, diarrhea, nausea/dyspepsia or vomiting Genitourinary Male: No burning urination, painful urination, urinary incontinence or urinary frequency Musc Musculoskeletal: No abnormal gait, joint pain, back pain, limited range of motion, neck pain, numbness or tingling Skin Skin: Positive for other (generalized rash complaints ); No dry skin, redness, lesions, itchy eyes, rash or wounds Neuro Neurology: No abnormal gait, abnormal hearing, frequent falls, headache(s), memory loss, numbness or tingling Psych Psychiatric: No abnormal sleep pattern, No anxiety, No change in appetite, No irritability, No memory loss and No Thoughts of harming yourself/Others Endo Endocrine: No cold intolerance, excessive sweating, fatigue, flushing, heat intolerance, increased thirst/drink (more content not included)... Normal [facility] Prof ministerio 08-07-2023 Albumin [Mass/Vol] 3.6 g/dL Normal 3.2-5.0 [facility] Comment on above: Performed By: #### L 500.4050, L500.4100 #### [facility] [address] [place], [address] Albumin/Globulin [Mass ratio] 0.9 {ratio} Normal 0.9-2.4 [facility] Comment on above: Performed By: #### L 500.4050, L500.4100 #### [facility] [address] [place], [address] ALK P 357 U/L High 45-117 [facility] Comment on above: Performed By: #### L 500.4050, L500.4100 #### [facility] [address] [place], [address] ALT [Catalytic activity/Vol] 47 U/L Normal 16-61 [facility] Comment on above: Performed By: #### L 500.4050, L500.4100 #### [facility] [address] [place], [address] AST [Catalytic activity/Vol] 47 U/L High 15-37 [facility] Comment on above: Performed By: #### L 500.4050, L500.4100 #### [facility] [address] [place], [address] Bilirubin [Mass/Vol] 0.50 mg/dL Normal 0.20-1.00 [facility] Comment on above: Result Comment: For patients on eltrombopag therapy, use of Dimension [place] TBIL is not recommended. Performed By: #### L 500.4050, L500.4100 #### [facility] [address] [place], [address] BUN/CRE 18.8 RATIO Normal 10-20 [facility] Comment on above: Performed By: #### L 500.4050, L500.4100 #### [facility] [address] [place], [address] CA,Total 9.3 mg/dL Normal 8.5-10.1 [facility] Comment on above: Performed By: #### L 500.4050, L500.4100 #### [facility] [address] [place], [address] Chloride [Moles/Vol] 108 mmol/L High 98-107 [facility] Comment on above: Performed By: #### L 500.4050, L500.4100 #### [facility] [address] [place], [address] CO2 [Moles/Vol] 23.0 mmol/L Normal 21.0-32.0 [facility] Comment on above: Performed By: #### L 500.4050, L500.4100 #### [facility] [address] [place], [address] Creatinine [Mass/Vol] 0.74 mg/dL Normal 0.70-1.30 [facility] Comment on above: Result Comment: The validity of the calculated GFR GFRAA in patients over 70 years has not been determined. Clinical correlation is essential. Performed By: #### L 500.4050, L500.4100 #### [facility] [address] [place], [address] EST GFR - AA 129 mL/min Normal >60 [facility] Comment on above: Result Comment: Afri can [place] GFR Calc Performed By: #### L 500.4050, L500.4100 #### [facility] [address] [place], [address] GAP 8 Normal 5-15 [facility] Comment on above: Performed By: #### L 500.4050, L500.4100 #### [facility] [address] [place], [address] GFR/1.73 sq M.predicted among non-blacks MDRD (S/P/Bld) [Vol rate/Area] 107 mL/min/{1.73_m2} Normal >60 [facility] Comment on above: Result Comment: Non- GFR Calc Performed By: #### L 500.4050, L500.4100 #### [facility] [address] [place], [address] Globulin (S) [Mass/Vol] 3.9 g/dL Normal 2.2-4.2 [facility] Comment on above: Performed By: #### L 500.4050, L500.4100 #### [facility] [address] [place], [address] Glucose [Mass/Vol] 108 mg/dL High 74-106 [facility] Comment on above: Result Comment: Fast ing Glucose result from 100 to 125 mg/dL suggests IMPAIRED HOMEOSTASIS per A.D.A. criteria. Performed By: #### L 500.4050, L500.4100 #### [facility] [address] [place], [address] Potassium [Moles/Vol] 4.2 mmol/L Normal 3.5-5.1 [facility] Comment on above: Performed By: #### L 500.4050, L500.4100 #### [facility] [address] [place], [address] Sodium [Moles/Vol] 139 mmol/L Normal 136-145 [facility] Comment on above: Performed By: #### L 500.4050, L500.4100 #### [facility] [address] [place], [address] T PROT 7.5 g/dL Normal 6.4-8.2 [facility] Comment on above: Performed By: #### L 500.4050, L500.4100 #### [facility] [address] [place], [address] Urea nitrogen [Mass/Vol] 14 mg/dL Normal 7-18 [facility] Comment on above: Performed By: #### L 500.4050, L500.4100 #### [facility] [address] [place], [address] Internal Medicine Office Vis annabel 08-07-2023 Internal Medicine Office Visit [facility] [address] [place] [address] OFFICE VISIT Date of Service: 08/07/23 MR#: [id number] Acct: [id number] Name: DAVE MARTINEZ Rep #: [id number] : 1940 Provider: Dr. [place] Redman Br own, DO Age/Sex: 82/M Location[place] [facility] Status: Signed Intake Vital Signs 05/09/23 13:38 07/11/23 11:34 08/07/23 13:37 Height 5 ft 10 in 5 ft 10 in 5 ft 10 in Weight: 191 lb 184 lb BMI 27.3 26.4 BP 110/70 120/66 Blood Pressure Location Lt brachial Lt brachial Position Sitting Sitting Respiration 16 18 Pulse 76 79 Pulse Source Monitor Monitor Temp 97.7 F L 97.6 F L Temp Source Temporal Temporal Pulse Oximetry (%) 98 97 Oxygen Delivery Method room air room air Intake Visit Reasons: 3 M FU Chief Complaint: 3-month follow-up exam. Ic Engineer Required: No Accompanied by: Is patient in pain?: No Allergies amoxicillin (From Augmentin) Allergy (Verified 08/07/23 13:29) Rash clavulanic acid (From Augmentin) Allergy (Verified 08/07/23 13:29) Rash erythromycin base Allergy (Verified 08/07/23 13:29) Rash Penicillins Allergy (Verified 08/07/23 13:29) Rash metronidazole Adverse Reaction (Intermediate, Verified 08/07/23 13:29) Itching ranitidine (From Zantac) Adverse Reaction (Verified 08/07/23 13:29) Upset Stomach Medications ???Medication ???Instructions ???Recorded ???Confirmed ???Type multivitamin 1 ea PO DAILY 09/22/16 08/07/23 History azelastine 137 mcg (0.1 %) nasal 1 spray intranasal BID #60 mL 12/23/20 08/07/23 Rx spray psyllium husk 0.4 gram capsule 0.4 g PO DAILY 01/04/21 08/07/23 History (Daily Fiber) lisinopril 20 mg tablet See Rx Instructions .Route 11/02/22 08/07/23 Rx .COMPLEX #90 tabs finasteride 5 mg tablet 5 mg PO DAILY #90 tabs 02/08/23 08/07/23 Rx pravastatin 40 mg tablet 40 mg PO DAILY cholesterol #90 tabs 02/08/23 08/07/23 Rx betamethasone valerate 0.1 % lotion 1 applic topical BID PRN rash #60 05/09/23 08/07/23 Rx mL metoprolol succinate 50 mg 50 mg PO DAILY blood pressure #90 06/21/23 08/07/23 Rx tablet,extended release 24 hr tabs PFSH Medical History History of skin cancer Seasonal allergies Hyperlipemia Hypertension Surgical History Status post Mohs surgery History of transurethral resection of prostate Family History Aunt Myocardial infarction, Onset Age: 60 Mother Cancer skin Breast cancer Social History Smoking Status: Current every day smoker alcohol intake: current alcohol intake frequency: 0-2 drinks per day what type of physical activity do you participate in: walking frequency: daily HPI HPI Chief Complaint: 3-month follow-up exam. Details: DAVE MARTINEZ, is a 82 M who presents to the office today for a 3-month follow-up exam. This patient had the typical reaction that you would have with 5-fluorouracil and he came in and was examined by the physicians assistant reading teacher in our office. He located an area in front of his right ear that looked deeper than the other lesions and thought that this best be surgically excised. Many of the other multiple facial lesions that were actinic keratosis have resolved from this treatment. Other than that he really has no other complaints. ROS Const Constitutional: No body ache, chills, excessive sweating, fatigue, fever(s), frequent falls, headache(s), snoring, weakness or change in appetite Eyes Eyes: No blurry vision, change in vision, eye pain or Light sensitivity ENT ENT: No abnormal hearing, ear or mastoid pain, tinnitus, nasal congestion, headache(s), neck pain or sore throat Resp Respiratory: No cough, shortness of breath, snoring or wheezing Cardio Cardiology: No chest pain at rest, chest pain with exertion, excessive sweating, dyspnea on exertion, lightheadedness, orthopnea or palpitations Gastro GI: No abdominal pain, change in bowel habits, constipation, cramping, diarrhea, nausea/dyspepsia or vomiting Genitourinary Male: No burning urination, painful urination, urinary incontinence or urinary frequency Musc Musculoskeletal: No abnormal gait, joint pain, back pain, limited range of motion, muscle weakness, neck pain or numbness Skin Skin: No dry skin, redness, lesions, itchy eyes, rash or wounds Neuro Neurology: No abnormal gait, abnormal hearing, weakness, frequent falls, headache(s), memory loss or numbness Psych Psychiatric: No anxiety, No change in appetite, No depression, No memory loss and No Thoughts of harming yourself/Others Endo Endocrine: No cold intolerance, excessive sweating, fatigue, flushing, heat intolerance, increased thirst/dri (more content not included)... Normal [facility] Lipid Profileon 08-07-2023 Cholesterol [Mass/Vol] 181 mg/dL Normal 200 [facility] Comment on above: Result Comment: <200 mg/dL Desirable 200-240 mg/dL Borderline >240 mg/dL High Risk Performed By: #### L 500.4050, L500.4100 #### [facility] [address] [place], [address] Cholesterol in HDL [Mass/Vol] 80 mg/dL Normal [facility] Comment on above: Result Comment: The drugs N-Acetylcysteine and Metamizole may falsely depress this assay. Reference Range HDL <40 mg/dL Low HDL Cholesterol HDL >or= 60 mg/dL High HDL Cholesterol Performed By: #### L 500.4050, L500.4100 #### [facility] [address] [place], [address] Cholesterol in LDL [Mass/Vol] 78 mg/dL Normal 0-130 [facility] Comment on above: Performed By: #### L 500.4050, L500.4100 #### [facility] [address] [place], [address] Cholesterol in VLDL [Mass/Vol] 23 mg/dL Normal 5-40 [facility] Comment on above: Performed By: #### L 500.4050, L500.4100 #### [facility] [address] [place], [address] Triglyceride [Mass/Vol] 113 mg/dL Normal [facility] Comment on above: Result Comment: The drugs N-Acetylcysteine and Metamizole may falsely depress this assay. Serum Triglycerides Reference Interval Normal <150 mg/dL Borderline high 150 - 199 mg/dL High 200 - 499 mg/dL Very High > or = 500 mg/dL Performed By: #### L 500.4050, L500.4100 #### [facility] [address] [place], [place], [address] Internal Medicine Office Vis iton 07-11-2023 Internal Medicine Office Visit [facility] [address] [place], [place] [address] OFFICE VISIT Date of Service: 07/11/23 MR#: [id number] Acct: [id number] Name: DAVE MARTINEZ Rep #: [id number] : 1940 Provider: EMORY Veras Age/Sex: 82/M Location: [facility] Status: Signed Intake Vital Signs 05/09/23 13:38 07/11/23 11:34 Height 5 ft 10 in 5 ft 10 in Weight: 191 lb 185 lb BMI 27.3 26.5 BP 110/70 122/74 H Blood Pressure Location Lt brachial Lt brachial Position Sitting Sitting Respiration 16 16 Pulse 76 82 Pulse Source Monitor Monitor Temp 97.7 F L 97.5 F L Temp Source Temporal Temporal Pulse Oximetry (%) 98 98 Oxygen Delivery Method room air room air Intake Visit Reasons: SKIN CANCER ON RIGHT SIDE OF FACE Ic Engineer Required: No Is patient in pain?: No Allergies amoxicillin (From Augmentin) Allergy (Verified 07/11/23 11:28) Rash clavulanic acid (From Augmentin) Allergy (Verified 07/11/23 11:28) Rash erythromycin base Allergy (Verified 07/11/23 11:28) Rash Penicillins Allergy (Verified 07/11/23 11:28) Rash metronidazole Adverse Reaction (Intermediate, Verified 07/11/23 11:28) Itching ranitidine (From Zantac) Adverse Reaction (Verified 07/11/23 11:28) Upset Stomach Medications ???Medication ???Instructions ???Recorded ???Confirmed ???Type multivitamin 1 ea PO DAILY 09/22/16 07/11/23 History azelastine 137 mcg (0.1 %) nasal 1 spray intranasal BID #60 mL 12/23/20 07/11/23 Rx spray aerosol psyllium husk 0.4 gram capsule 0.4 g PO DAILY 01/04/21 07/11/23 History (Daily Fiber) lisinopril 20 mg tablet See Rx Instructions .Route 11/02/22 07/11/23 Rx .COMPLEX #90 tabs finasteride 5 mg tablet 5 mg PO DAILY #90 tabs 02/08/23 07/11/23 Rx pravastatin 40 mg tablet 40 mg PO DAILY cholesterol #90 tabs 02/08/23 07/11/23 Rx betamethasone valerate 0.1 % lotion 1 applic topical BID PRN rash #60 05/09/23 07/11/23 Rx mL metoprolol succinate 50 mg 50 mg PO DAILY blood pressure #90 06/21/23 07/11/23 Rx tablet,extended release 24 hr tabs Nurse's Note: States he had been having lesion on R side of face froze. It is precancerous. He was given a cream and it is now red and itchy. He has not put it on for 3 days. He states he had been using it for around a month and it was a little irritated but has been getting worse. Was wanting referral to Dr. Boyle. [facility] Medical History History of skin cancer Seasonal allergies Hyperlipemia Hypertension Surgical History Status post Mohs surgery History of transurethral resection of prostate Family History Aunt Myocardial infarction, Onset Age: 60 Mother Cancer skin Breast cancer Social History Smoking Status: Current every day smoker alcohol intake: current alcohol intake frequency: 0-2 drinks per day what type of physical activity do you participate in: walking frequency: daily HPI HPI Details: DAVE MARTINEZ, is a 82 M who presents to the office today for skin lesion on the right side of his face. 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 Patient states that this continued to grow and therefore they switched to a topical 5-fluorouracil which she has been using for the past few weeks. Patient states that since using that he just has had a lot of irritation including redness as well as a lot of itching/discomfort of the skin. He also states that the skin has become very friable and is bleeding and scabbing and therefore patient wanted to discuss this medication today and possibly seeing about a referral to dermatology. ROS Const Constitutional: No body ache, chills, excessive sweating, fatigue, fever(s), frequent falls, headache(s), snoring, weakness, sleep problems or change in appetite Eyes Eyes: No blurry vision, change in vision, eye pain or Light sensitivity ENT ENT: No abnormal hearing, ear or mastoid pain, tinnitus, nasal congestion, headache(s), neck pain or sore throat Resp Respiratory: No cough, shortness of breath, snoring or wheezing Cardio Cardiology: No chest pain at rest, chest pain with exertion, excessive sweating, shortness of breath, dyspnea on exertion, lightheadedness, orthopnea or palpitations Gastro GI: No abdominal pain, change in bowel habits, constipation, cramping, diarrhea, nausea/dyspepsia or vomiting Genitourinary Male: No burning urination, painful urination, urinary incontinence or urinary frequency Musc Musculoskeletal: No abnormal gait, joint pain, back pain, limited range of motion, neck (more content not included)... Normal [facility] Basophil percentageOrdered B y: [place] Brown on 10-18-2022 Bilirubin [Mass/Vol] 0.80 mg/dL 0.20-1.00 [facility] Comment on above: For patients on eltr ombopag therapy, use of Dimension [place] TBIL is not recommended. Chloride [Moles/Vol] 104 mmol/L 98-107 [facility] Glucose [Mass/Vol] 100 mg/dL 74-106 [facility] Comment on above: Fasting Glucose resu lt from 100 to 125 mg/dL suggests IMPAIRED HOMEOSTASIS per A.D.A. criteria. Potassium [Moles/Vol] 4.1 mmol/L 3.5-5.1 [facility] Protein [Mass/Vol] 7.6 g/dL 6.4-8.2 [facility] Sodium [Moles/Vol] 137 mmol/L 136-145 [facility] INR in Blood by Coagulation assayOrdered By: [place] Richardson on 10-18-2022 INR Coag (Bld) [Relative time] 1.0 {INR} [facility] - Chemistry and C hemistry - challengeOrdered By: [place] Richardson on 10-18-2022 ALP [Catalytic activity/Vol] 415 U/L 45-117 [facility] ALT [Catalytic activity/Vol] 50 U/L 16-61 [facility] CO2 [Moles/Vol] 29.0 mmol/L 21.0-32.0 [facility] Globulin (S) [Mass/Vol] 4.0 g/dL 2.2-4.2 [facility] Urea nitrogen/Creatinine [Mass ratio] 10.7 mg/mg 10-20 [facility] - CoagulationOrde red By: [place] Richardson on 10-18-2022 PT Coag (PPP) [Time] 13.3 s 11.7-14.9 [facility] No Panel InformationOrdered By: [place] Richardson on 10-18-2022 Estimated GFR (MDRD) Amer 112 mL/min >60 [facility] Comment on above: GFR Calc Estimated GFR (MDRD) Non-Af Amer 92 mL/min >60 [facility] Comment on above: Non- GFR Calc Serum or plasma albumin lucy urement (mass/volume)Ordered By: [place] Richardson on 10-18-2022 Albumin [Mass/Vol] 3.6 g/dL 3.2-5.0 [facility] Serum or plasma albumin/glob ulin mass ratioOrdered By: [place] Richardson on 10-18-2022 Albumin/Globulin [Mass ratio] 0.9 {ratio} 0.9-2.4 [facility] Serum or plasma calcium lucy urement (mass/volume)Ordered By: [place] Richardson on 10-18-2022 Calcium [Mass/Vol] 9.2 mg/dL 8.5-10.1 [facility] Serum or plasma creatinine m easurement (mass/volume)Ordered By: [place] Richardson on 10-18-2022 Creatinine [Mass/Vol] 0.84 mg/dL 0.70-1.30 [facility] Comment on above: The validity of the calculated GFR & GFRAA in patients over 70 years has not been determined. Clinical correlation is essential. Serum or plasma urea nitroge n measurement (mass/volume)Ordered By: [place] Richardson on 10-18-2022 Urea nitrogen [Mass/Vol] 9 mg/dL 7-18 [facility] Thin prep Papanicolaou smear with manual screeningOrdered By: [place] Richardson on 10-18-2022 Thin prep Papanicolaou smear with manual screening 46 U/L 15-37 [facility] Thin prep Papanicolaou smear with manual screening 4 5-15 [facility] INR in Blood by Coagulation assayOrdered By: Dr. Richardson on 07-13-2022 INR Coag (Bld) [Relative time] 1.0 {INR} [facility] - CoagulationOrde red By: Dr. Richardson on 07-13-2022 PT Coag (PPP) [Time] 13.0 s 11.7-14.9 [facility] URINALYSIS WITH CULTURE IF I NDICATEDon 07-10-2022 Appearance (U) Canceled [facility] Comment on above: Order Comment: TEST URINALYSIS WITH CULTURE IF INDICATED WAS CANCELLED, 07/10/2022 00:53 PATIENT DISCHARGED. Performed By: #### U ARFX #### [place] [address] ASCORBIC ACID Canceled [facility] Comment on above: Order Comment: TEST URINALYSIS WITH CULTURE IF INDICATED WAS CANCELLED, 07/10/2022 00:53 PATIENT DISCHARGED. Result Comment: Conc entrations > = 20 mg/dL of ascorbic acid can be expected to cause strong interference in the reactions testing for glucose, nitrite and blood. It is recommended to discontinue Vitamin C administration and retest in 10 hours. Performed By: #### U ARFX #### [place] [id number] Bilirubin Ql (U) Canceled [facility] Comment on above: Order Comment: TEST URINALYSIS WITH CULTURE IF INDICATED WAS CANCELLED, 07/10/2022 00:53 PATIENT DISCHARGED. Performed By: #### U ARFX #### [address] [address] Color (U) Canceled [facility] Comment on above: Order Comment: TEST URINALYSIS WITH CULTURE IF INDICATED WAS CANCELLED, 07/10/2022 00:53 PATIENT DISCHARGED. Performed By: #### U ARFX #### [address] [address] Glucose Ql (U) Canceled [facility] Comment on above: Order Comment: TEST URINALYSIS WITH CULTURE IF INDICATED WAS CANCELLED, 07/10/2022 00:53 PATIENT DISCHARGED. Performed By: #### U ARFX #### [address] [address] Hemoglobin Ql (U) Canceled [facility] Comment on above: Order Comment: TEST URINALYSIS WITH CULTURE IF INDICATED WAS CANCELLED, 07/10/2022 00:53 PATIENT DISCHARGED. Performed By: #### U ARFX #### [address] [address] Ketones Ql (U) Canceled [facility] Comment on above: Order Comment: TEST URINALYSIS WITH CULTURE IF INDICATED WAS CANCELLED, 07/10/2022 00:53 PATIENT DISCHARGED. Performed By: #### U ARFX #### [address] [address] Leukocyte esterase Test strip Ql (U) Canceled [facility] Comment on above: Order Comment: TEST URINALYSIS WITH CULTURE IF INDICATED WAS CANCELLED, 07/10/2022 00:53 PATIENT DISCHARGED. Performed By: #### U ARFX #### [address] [address] Nitrite Ql (U) Canceled [facility] Comment on above: Order Comment: TEST URINALYSIS WITH CULTURE IF INDICATED WAS CANCELLED, 07/10/2022 00:53 PATIENT DISCHARGED. Performed By: #### U ARFX #### [address] [address] pH Canceled Normal [facility] Comment on above: Order Comment: TEST URINALYSIS WITH CULTURE IF INDICATED WAS CANCELLED, 07/10/2022 00:53 PATIENT DISCHARGED. Performed By: #### U ARFX #### [address] [address] Protein Ql (U) Canceled [facility] Comment on above: Order Comment: TEST URINALYSIS WITH CULTURE IF INDICATED WAS CANCELLED, 07/10/2022 00:53 PATIENT DISCHARGED. Performed By: #### U ARFX #### [place] [id number] Specific gravity (U) [Rel density] Canceled Normal [facility] Comment on above: Order Comment: TEST URINALYSIS WITH CULTURE IF INDICATED WAS CANCELLED, 07/10/2022 00:53 PATIENT DISCHARGED. Performed By: #### U ARFX #### [address] [address] UROBILINOGEN Canceled Normal [facility] Comment on above: Order Comment: TEST URINALYSIS WITH CULTURE IF INDICATED WAS CANCELLED, 07/10/2022 00:53 PATIENT DISCHARGED. Performed By: #### U ARFX #### [address] [address] BASIC METABOLIC PANELon 06-20 Anion gap [Moles/Vol] 13 mmol/L Normal 10 - 20 [facility] Comment on above: Performed By: #### B MP #### [address] [address] Calcium [Mass/Vol] 9.8 mg/dL Normal 8.6 - 10.3 [facility] Comment on above: Performed By: #### B MP #### [address] [address] Chloride [Moles/Vol] 103 mmol/L Normal 98 - 107 [facility] Comment on above: Performed By: #### B MP #### [address] [address] Creatinine [Mass/Vol] 0.82 mg/dL Normal 0.50 - 1.30 [facility] Comment on above: Performed By: #### B MP #### [address] [address] GFR/1.73 sq M.predicted among non-blacks MDRD (S/P/Bld) [Vol rate/Area] 88 mL/min/{1.73_m2} Normal >90 [facility] Comment on above: Result Comment: CALC ULATIONS OF ESTIMATED GFR ARE PERFORMED USING THE 2020 CKD-EPI STUDY REFIT EQUATION WITHOUT THE RACE VARIABLE FOR THE IDMS-TRACEABLE CREATININE METHODS. https://jasn.asnjournals.org/content/early//ASN.15293 14097 Performed By: #### B MP #### [address] [address] Glucose [Mass/Vol] 124 mg/dL High 74 - 99 [facility] Comment on above: Performed By: #### B MP #### [address] [address] HCO3 (Bld) [Moles/Vol] 24 mmol/L Normal 21 - 32 [facility] Comment on above: Performed By: #### B MP #### [address] [address] Potassium [Moles/Vol] 4.9 mmol/L Normal 3.5 - 5.3 [facility] Comment on above: Result Comment: MODE RATE HEMOLYSIS DETECTED. The result may be falsely elevated due to hemolysis or other interferents. Clinical correlation is recommended. Repeat testing may be considered. Performed By: #### B MP #### [address] [address] Sodium [Moles/Vol] 135 mmol/L Low 136 - 145 [facility] Comment on above: Performed By: #### B MP #### [address] [address] Urea nitrogen [Mass/Vol] 13 mg/dL Normal 6 - 23 [facility] Comment on above: Performed By: #### B MP #### [address] [address] CBC AND DIFFERENTIALon 07-09 % AUTOMATED IMMATURE GRAN 0.3 % Normal 0.0 - 0.9 [facility] Comment on above: Result Comment: Romi ture Granulocyte Count (IG) includes promyelocytes, myelocytes and metamyelocytes but does not include bands. Percent differential counts (%) should be interpreted in the context of the absolute cell counts (cells/L). Performed By: #### C BCDF #### [address] [address] Basophils (Bld) [#/Vol] 0.03 10*3/uL Normal 0.00 - 0.10 [facility] Comment on above: Performed By: #### C BCDF #### [address] [address] Basophils/100 WBC (Bld) 0.4 % Normal 0.0 - 2.0 [facility] Comment on above: Performed By: #### C BCDF #### [address] [address] Eosinophils (Bld) [#/Vol] 0.04 10*3/uL Normal 0.00 - 0.40 [facility] Comment on above: Performed By: #### C BCDF #### [address] [address] Eosinophils/100 WBC (Bld) 0.5 % Normal 0.0 - 6.0 [facility] Comment on above: Performed By: #### C BCDF #### [address] [address] Erythrocyte distribution width (RBC) [Ratio] 13.7 % Normal 11.5 - 14.5 [facility] Comment on above: Performed By: #### C BCDF #### [address] [address] Hematocrit (Bld) [Volume fraction] 50.2 % Normal 41.0 - 52.0 [facility] Comment on above: Performed By: #### C BCDF #### [address] [address] Hemoglobin (Bld) [Mass/Vol] 16.4 g/dL Normal 13.5 - 17.5 [facility] Comment on above: Performed By: #### C BCDF #### [address] [address] Lymphocytes (Bld) [#/Vol] 1.04 10*3/uL Normal 0.80 - 3.00 [facility] Comment on above: Performed By: #### C BCDF #### [address] [id number] Lymphocytes/100 WBC (Bld) 13.6 % Normal 13.0 - 44.0 [facility] Comment on above: Performed By: #### C BCDF #### [address] [address] MCHC (RBC) [Mass/Vol] 32.7 g/dL Normal 32.0 - 36.0 [facility] Comment on above: Performed By: #### C BCDF #### [address] [address] MCV (RBC) [Entitic vol] 99 fL Normal 80 - 100 [facility] Comment on above: Performed By: #### C BCDF #### [address] [address] Monocytes (Bld) [#/Vol] 0.50 10*3/uL Normal 0.05 - 0.80 [facility] Comment on above: Performed By: #### C BCDF #### [address] [address] Monocytes/100 WBC (Bld) 6.5 % Normal 2.0 - 10.0 [facility] Comment on above: Performed By: #### C BCDF #### [address] [address] Neutrophils (Bld) [#/Vol] 6.03 10*3/uL High 1.60 - 5.50 [facility] Comment on above: Result Comment: Perc ent differential counts (%) should be interpreted in the context of the absolute cell counts (cells/L). Performed By: #### C BCDF #### [address] [address] Neutrophils/100 WBC (Bld) 78.7 % Normal 40.0 - 80.0 [facility] Comment on above: Performed By: #### C BCDF #### [address] [address] Platelets (Bld) [#/Vol] 218 10*3/uL Normal 150 - 450 [facility] Comment on above: Performed By: #### C BCDF #### [address] [address] RBC 5.06 x10E12/L Normal 4.50 - 5.90 [facility] Comment on above: Performed By: #### C BCDF #### [address] [address] WBC (Bld) [#/Vol] 7.7 10*3/uL Normal 4.4 - 11.3 [facility] Comment on above: Performed By: #### C BCDF #### [address] [address] [address] C-SPINE WO CONTRASTon CT C-SPINE WO CONTRAST Patient Name: DAVE MARTINEZ STUDY: CT C-SPINE WO CONTRAST; 07/09/2022 9:51 pm INDICATION: fall . COMPARISON: None. ACCESSION NUMBER(S): [id number] ORDERING CLINICIAN: BASSAM STALLWORTH TECHNIQUE: Contiguous axial images of the cervical spine were obtained without intravenous contrast. Coronal and sagittal reformatted images were obtained from the axial images. FINDINGS: No acute fracture of the cervical spine. There is multiple urine change of the cervical spine. There is multilevel intervertebral disc space narrowing and anterior osseous spurring. There is limited evaluation of the soft tissues of the spinal canal. There is multilevel prominent posterior osseous spurring resulting in multilevel spinal canal stenosis. There is multilevel degenerative facet and uncovertebral arthropathy with multilevel neural foramina stenosis. No significant prevertebral soft tissue edema. IMPRESSION: No evidence of acute fracture of the cervical spine. Multilevel degenerative change of the cervical spine with multilevel spinal canal stenosis. Straightening of the normal cervical lordosis which may be secondary to patient positioning or muscle spasm. Electronically signed by: LINDA CHENG MD Normal [facility] CT CHEST ABDOMEN PELVIS W IV CONTRASTon 05-21-2023 CT CHEST ABDOMEN PELVIS W IV CONTRAST STUDY: CT Chest, Abdomen, and Pelvis with IV Contrast; 07/09/2022 at 9:58 PM INDICATION: Fall. COMPARISON: None available. ACCESSION NUMBER(S): [id number] ORDERING CLINICIAN: BASSAM STALLWORTH MD TECHNIQUE: CT of the chest, abdomen, and pelvis was performed. Contiguous axial images were obtained at 3 mm slice thickness through the chest, abdomen, and pelvis. Coronal and sagittal reconstructions at 3 mm slice thickness were performed. Omnipaque 350 90 mL was administered intravenously. FINDINGS: CHEST: MEDIASTINUM: The heart is normal in size without pericardial effusion. Central vascular structures opacify normally. LUNGS/PLEURA: There is no pleural effusion, pleural thickening, or pneumothorax. The airways are patent. Subsegmental linear atelectasis in the lower lobes. Lungs are without interstitial disease or suspicious nodules. LYMPH NODES: Thoracic lymph nodes are not enlarged. ABDOMEN: LIVER: No hepatomegaly. Smooth surface contour. Normal attenuation. BILE DUCTS: No intrahepatic or extrahepatic biliary ductal dilatation. GALLBLADDER: Gallbladder present. STOMACH: No abnormalities identified. PANCREAS: No masses or ductal dilatation. SPLEEN: No splenomegaly or focal splenic lesion. ADRENAL GLANDS: No thickening or nodules. KIDNEYS AND URETERS: Kidneys are normal in size and location. No renal or ureteral calculi. PELVIS: BLADDER: No abnormalities identified. REPRODUCTIVE ORGANS: No abnormalities identified. VESSELS: There is atherosclerotic change of the aorta, without aneurysm. PERITONEUM/RETROPERITO NEUM/LYMPH NODES: No free fluid. No pneumoperitoneum. No lymphadenopathy. ABDOMINAL WALL: No abnormalities identified. SOFT TISSUES: There are bilateral inguinal hernias containing mesenteric fat on the left and a portion of small bowel on the right. No obstruction or incarceration seen. These are approximately 4 cm in size. BONES: No acute fracture or aggressive osseous lesion. IMPRESSION: 1.No acute traumatic injury to the chest, abdomen and pelvis. 2.Right inguinal hernia containing mesenteric fat and a portion of small bowel without obstruction or incarceration. Signed by Faheem Loza MD Electronically signed by: FAHEEM LOZA MD [facility] CT HEAD WO CONTRASTon 2022 CT HEAD WO CONTRAST Patient Name: DAVE MARTINEZ STUDY: CT HEAD WO CONTRAST; 07/09/2022 9:51 pm INDICATION: fall . COMPARISON: 01/07/2011 ACCESSION NUMBER(S): [id number] ORDERING CLINICIAN: BASSAM STALLWORTH TECHNIQUE: Contiguous axial images of the head were obtained without intravenous contrast. FINDINGS: BRAIN PARENCHYMA: There is cerebral atrophy and chronic periventricular white matter small vessel ischemic change. The ha white matter differentiation is preserved. No mass effect or midline shift. HEMORRHAGE: No evidence of acute intracranial hemorrhage. VENTRICLES AND EXTRA-AXIAL SPACES: The ventricles are within normal limits in size for brain volume. No evidence of abnormal extraaxial fluid collection. EXTRACRANIAL SOFT TISSUES: Within normal limits. PARANASAL SINUSES/MASTOIDS: Mucosal thickening of left maxillary sinus. CALVARIUM: No evidence of depressed calvarial fracture. OTHER FINDINGS: None IMPRESSION: No evidence of acute intracranial hemorrhage or depressed calvarial fracture. Cerebral atrophy and chronic periventricular white matter small vessel ischemic change. Electronically signed by: LINDA CHENG MD Normal [facility] HEPATIC FUNCTION PANELon Albumin [Mass/Vol] 4.4 g/dL Normal 3.4 - 5.0 [facility] Comment on above: Performed By: #### H EPFP #### [address] [address] ALP [Catalytic activity/Vol] 310 U/L High 33 - 136 [facility] Comment on above: Performed By: #### H EPFP #### [address] [address] ALT [Catalytic activity/Vol] 31 U/L Normal 10 - 52 [facility] Comment on above: Result Comment: Latonya ents treated with Sulfasalazine may generate falsely decreased results for ALT. Performed By: #### H EPFP #### [address] [address] AST [Catalytic activity/Vol] 52 U/L High 9 - 39 [facility] Comment on above: Result Comment: MODE RATE HEMOLYSIS DETECTED. The result may be falsely elevated due to hemolysis or other interferents. Clinical correlation is recommended. Repeat testing may be considered. Performed By: #### H EPFP #### [address] [address] Bilirubin [Mass/Vol] 0.7 mg/dL Normal 0.0 - 1.2 [facility] Comment on above: Performed By: #### H EPFP #### [address] [address] Bilirubin.indirect [Mass/Vol] 0.1 mg/dL Normal 0.0 - 0.3 [facility] Comment on above: Result Comment: MODE RATE HEMOLYSIS DETECTED. The result may be falsely decreased due to hemolysis or other interferents. Clinical correlation is recommended. Repeat testing may be considered. Performed By: #### H EPFP #### [address] [address] Protein [Mass/Vol] 7.7 g/dL Normal 6.4 - 8.2 [facility] Comment on above: Performed By: #### H EPFP #### [address] [address] LIPASEon 07-09-2022 Lipase [Catalytic activity/Vol] 25 U/L Normal 9 - 82 [facility] Comment on above: Result Comment: Maritza puncture immediately after or during the administration of Metamizole may lead to falsely low results. Testing should be performed immediately prior to Metamizole dosing. S-xgjyrl-h-benzoquinone imine (metabolite of Acetaminophen) will generate erroneously low results in samples for patients that have taken toxic doses of acetaminophen. Performed By: #### L IPAS #### [address] [address] Provider Note - ED v3on 05 Provider Note - ED v3 Provider Note: Chart Review: ED NOTES ED NOTES: HPI: Patient is an 81-year-old male chief complaint of right lower anterior lateral rib pain and right upper quadrant pain. He was about 4 foot up on a ladder painting when he fell backward off his right side landing directly on his right side. States he bumped his head but does not lose consciousness. He has no neurologic complaints. He is not on blood thinners. ROS: All systems are negative other than as noted in HPI. Physical Exam Constitutional: Well developed, moderate distress secondary to pain EYES: Sclera non-icteric. Conjunctiva not injected. No discharge. HENT: Moist mucous membranes. Posterior oropharynx non-erythematous, no tonsillar exudates. TMs clear bilaterally, canals normal. No cervical LAD. Neck supple without meningismus. CV: Regular rate and rhythm, Resp: No respiratory distress. Lungs clear bilaterally. GI: Significant right upper quadrant tenderness and guarding up in the rib area as well :. MSK: No gross deformities appreciated. Moves all extremities Neuro: Alert, age appropriate. Normal muscle tone. Moving all extremities. Skin: No rashes. HISTORY OF PRESENTING ILLNESS DAVE is a 81 year old Male and was seen by me at 09-Jul-2022 19:42 for a chief complaint of fall (pt states he was painting around 1500 this afternoon and fell back off his ladder approx 4 feet. c/o right rib and back pain, states he hit his head no loss of conciousness, denies blood thinner or neck pain.)(1). Triage Information: Most recent Vital Sign Value Date Temp (F): 99.8 07-09-2022 19:46 Temp (C): 37.6 07-09-2022 19:46 Heart Rate (beats/min): 91 07-09-2022 19:46 Respirations (breaths/min): 22 07-09-2022 19:46 SpO2 (%): 95 07-09-2022 19:46 BP Systolic (mm Hg): 151 07-09-2022 19:46 BP Diastolic (mm Hg): 84 07-09-2022 19:46 PAST MEDICAL HISTORY ALLERGIES/INTOLERANCES : No Known Allergies HEALTH HISTORY: No documented data. OUTPATIENT MEDICATIONS: Home Medications Review Status for Reconciliation: N/A Med Status: N/A No documented data. SIGNIFICANT EVENTS: No documented data. CRITICAL CARE RESULTS: Recent Lab Results: I have reviewed these laboratory results: Hepatic Function Panel 09-Jul-2022 19:58:00 ResultValue Aspartate Transaminase, Serum 52 H ALB 4.4 T Bili 0.7 Bilirubin, Serum Direct - Conjugated 0.1 ALKP 310 H Alanine Aminotransferase, Serum 31 T Pro 7.7 Complete Blood Count + Differential 09-Jul-2022 19:58:00 ResultValue White Blood Cell Count 7.7 Red Blood Cell Count 5.06 HGB 16.4 HCT 50.2 MCV 99 MCHC 32.7 PLT 218 RDW-CV 13.7 Neutrophil % 78.7 Immature Granulocytes % 0.3 Lymphocyte % 13.6 Monocyte % 6.5 Eosinophil % 0.5 Basophil % 0.4 Neutrophil Count 6.03 H Lymphocyte Count 1.04 Monocyte Count 0.50 Eosinophil Count 0.04 Basophil Count 0.03 Basic Metabolic Panel 09-Jul-2022 19:58:00 ResultValue Glucose, Serum 124 H NA 135 L K 4.9 CL 103 Bicarbonate, Serum 24 Anion Gap, Serum 13 BUN 13 CREAT 0.82 GFR Male 88 Calcium, Serum 9.8 Lipase, Serum 09-Jul-2022 19:58:00 ResultValue Lipase, Serum 25 Radiology Results: Impression: 1.No acute traumatic injury to the chest, abdomen and pelvis. 2.Right inguinal hernia containing mesenteric fat and a portion of small bowel without obstruction or incarceration. Signed by Faheem Loza MD CT Chest Abdomen Pelvis with IV Contrast [Jul 09 2022 11:00PM] Impression: No evidence of acute fracture of the cervical spine. Multilevel degenerative change of the cervical spine with multilevel spinal canal stenosis. Straightening of the normal cervical lordosis which may be secondary to patient positioning or muscle spasm. CT C Spine without Contrast [Jul 09 2022 10:31PM] Impression: No evidence of acute intracranial hemorrhage or depressed calvarial fracture. Cerebral atrophy and chronic periventricular white matter small vessel ischemic change. CT Head without Contrast [Jul 09 2022 10:28PM] VITAL SIGNS: T PRBP SpO2O2(LPM) %FiO2 Method 09-Jul-2022 23:23:[id number]/86 96 room air, no respiratory support 09-Jul-2022 21:42:[id number]/91 94 room air, no respiratory support 09-Jul-2022 19:46:[id number]/8 4 95 room air, no respiratory support [facility] MDM/ED COURSE: The patient is an 81-year-old male who fell backwards into the right off ladder complaining of right-sided pain. He is extremely tender to movements and a little bit less so to palpation. I think he has a rib contusion and a muscle strain. He did strike his head concern was intracranial injury/bleed, cervical spine injury, rib contusion creating further injury such as a pneumothorax or liver laceration or kidney laceration. Patient's laboratory studies are unremarkable. (more content not included)... [facility] Risk Screen - Adult Emergenc yon 07-09-2022 Risk Screen - Adult Emergency Preferred Language: Preferred Language: Preferred Language for Discussing Health Care (patient/designee)Engl maximilian Patient Preferred Pharmacy: Patient Preferred Pharmacy Statement: I have reviewed and updated the patient's preferred pharmacy selection for today's visit. Advanced Directives: Advance Directive/DNRno Family Violence Adult: Abuse Screen: Are you or have you been threatened or abused physically, emotionally, or sexually by anyoneno Learning Assessment (Patient): Learning Assessment (Patient): Patient is Able to be Assessed for Learningyes Factors Influencing Readiness to Learnpain Factors that Impact Ability to Learnnone Devices/Methods Used to Communicatenone Learning Preferencesaudio Cultural Considerationsnone Developmental Considerationsnone Alevism Considerationsnone Learning Assessment (Other Learner): Learning Assessment (Other Learner): Other learner availableno Pressure Injury/TB/Substance: Pressure Injury: Pressure Injury Present on Admissionno Do you have a coughno Smoking Statusoccasional user (use that is infrequent, sporadic, not on a daily basis) Tobacco Cessation Education (provide if tobacco use within the last 12 mos) patient declined Alcohol Usedaily Drug Usedenies Drug 2 Usedenies Admission Risk Screen: Significant IndicatorsComplete CAGE: CAGE: Is this an injured patient at a Trauma Center ([facility]): no Electronic Signatures: Keri Rodriguez (HENNY) (Signed 09-Jul-2022 19:51) Authored: Preferred Language, Patient Preferred Pharmacy, Advanced Directives, Family Violence Adult, Learning Assessment (Patient), Learning Assessment (Other Learner), Pressure Injury/TB/Substance, Pressure Injury, CAGE Last Updated: 09-Jul-2022 19:51 by Keri Rodriguez (HENNY) [facility] Triage - EDon 07-09-2022 Triage - ED Chart Review: ARRIVAL INFORMATION Mode of Arrival: private vehicle CHIEF COMPLAINT DAVE MARTINEZ is a Male patient with a chief complaint of fall (pt states he was painting around 1500 this afternoon and fell back off his ladder approx 4 feet. c/o right rib and back pain, states he hit his head no loss of conciousness, denies blood thinner or neck pain.). Triage Date/Time: 09-Jul-2022 19:46 LEANDRA: 2 Pain Rating (0-10): 9 = Severe Pain location: right rib Vital Signs: Temperature: 99.8F ( 37.6C) taken temporal Blood Pressure: 151/84 Mean: Heart Rate: 91 Respiratory Rate: 22 Pulse Oximetry: 95% on room air, no respiratory support. Height: 5 feet 9.00 inches. CM Weight: 185.1 pounds. Calculated 84.0 kg. (stated) [place] Coma Scale: Best Eye Response: (E4) spontaneous Best Motor Response: (M6) obeys commands Best Verbal Response: (V5) oriented Catie Score: 15 Allergies: no Patient has homicidal thoughts: no Symptoms Are POSITIVE For: decreased ROM and pain (describe). Risk Screens Suicide Risk Screen In the Past Month: Have you wished you were or wished you could go to sleep and not wake up no In the Past Month: Have you had any actual thoughts of killing yourself no In Your Lifetime: Have you ever done anything, started to do anything, or prepared to do anything to end your life no Gallagher Fall Scale Screening Has the patient fallen before (or is the patient in the ED as a result of a fall) has had a fall Does the patient have an impaired gait has impaired gait Is the patient cognitively impaired not cognitively impaired Gallagher Fall Scale History of falling (immediate or previous) yes (25) Secondary Diagnosis yes (15) Intravenous Therapy/ Heparin/Saline Lock yes (20) Gait/Transferring weak (10) Ambulatory Aids none/bedrest/nurse assist (0) Mental Status oriented to own ability (0) Gallagher Fall Risk Score: 70 Interventions: Gallagher Fall Interventions: HIGH INTERVENTIONS *Low and Moderate Interventions Plus: * supervised toileting at all times TRAVEL HISTORY Travel History Coronavirus Screening: no exposure or symptoms Travel Exposure History: NO travel to International locations in the past 30 days PAIN Pain Scale Used: VANNESSA Pain Rating (0-10): 9 = Severe Past Medical History: Past Medical History Reviewedno Electronic Signatures: Keri Rodriguez) (Signed 09-Jul-2022 19:49) Authored: Quick Triage, Risk Screens, Pain, Travel History, Chart Review, Scores, Past Medical History Last Updated: 09-Jul-2022 19:49 by Keri Rodriguez (RN) [facility] No Panel Informationon 01-09 Thyroid Stimulating Hormone (TSH) 0.85 uIU/mL 0.358-3.74 [facility] Work Phone: Vitamin D 25-Hydroxy 42.7 ng/mL [facility] Work Phone: Comment on above: Vitamin D 25(OH) Sta tus Range Deficiency <20 ng/mL (50nmol/L) Insufficiency 20 - 30 ng/mL (50 - 75 nmol/L) Sufficiency 30 - 100 ng/mL (75 - 250 nmol/L) Toxicity >100 ng/mL (>250 nmol/L) Basophil percentageon 2021 Bilirubin [Mass/Vol] 0.60 mg/dL 0.20-1.00 [facility] Work Phone: Comment on above: For patients on eltr ombopag therapy, use of Dimension [place] TBIL is not recommended. Protein [Mass/Vol] 7.9 g/dL 6.4-8.2 [facility] Work Phone: Direct bilirubinon 2 Bilirubin.direct [Mass/Vol] 0.20 mg/dL 0.00-0.30 [facility] Work Phone: Laboratory - Chemistry and C hemistry - challengeon 01-03-2022 ALP [Catalytic activity/Vol] 343 U/L 45-117 [facility] Work Phone: ALT [Catalytic activity/Vol] 57 U/L 16-61 [facility] Work Phone: Globulin (S) [Mass/Vol] 4.2 g/dL 2.2-4.2 [facility] Work Phone: Serum or plasma albumin lucy urement (mass/volume)on 01-03-2022 Albumin [Mass/Vol] 3.7 g/dL 3.2-5.0 [facility] Work Phone: Thin prep Papanicolaou smear with manual screeningon 01-03-2022 Thin prep Papanicolaou smear with manual screening 45 U/L 15-37 [facility] Work Phone: XR Knee Complete Righton XR Knee Complete Right Exam Date/Time: 11/21/2018 09:30 EDT Reason for Exam: Right knee pain;Pain, Non Traumatic Report STUDY: XR Knee Complete Right; 11/21/2018 9:30 am INDICATION: Pain, Non Traumatic. COMPARISON: None. ACCESSION NUMBER(S): [id number] ORDERING CLINICIAN: Malorie Doyle TECHNIQUE: 4 views of the right knee including AP, lateral, patellar sunrise and knee tunnel projections were obtained. FINDINGS: There is no evidence of acute fracture or dislocation identified. The joint spaces are well preserved throughout without significant degenerative changes. No suprapatellar joint effusion is present. IMPRESSION: 1. No acute fracture or dislocation. FINAL REPORT Dictated: 11/22/2018 2:29 pm Cory Saez MD Signed (Electronic Signature): 11/22/2018 2:29 pm Signed by: Cory Saez MD Technologist: [facility] SURGon 01-24-2017 SURG Name: DAVE MARTINEZ A. Skin, Central Forehead B. Skin, Right Upper Preauricular Clinical History BCC X 2 Diagnosis A. Basal cell carcinoma. The excision margins appear negative for tumor. B. Basal cell carcinoma focally involving the 3 o'clock peripheral excision margin. The other margins including the deep margin are negative for tumor. JF;lat Gross Description A. The specimen received in formalin labeled central forehead consists of a skin excision measuring 2.6 x 1.5 x 0.8 cm. In the center is a 1.2 x 0.6 cm reddish-brown ulcer. A suture castillo the superior tip which is designated 12 o'clock. The 3 o'clock margin is tagged with blue ink, and the 9 o'clock margin is tagged with black ink. The specimen is cross sectioned and entirely submitted from superior to inferior in 2 cassettes. B. The specimen received in formalin labeled right upper preauricular consists of a skin excision measuring 2.5 x 0.9 x 0.5 cm. A suture castillo the superior tip which is designated 12 o'clock. The 3 o'clock margin is tagged with black ink, and the 9 o'clock margin is tagged with blue ink. The specimen is cross sectioned and entirely submitted from superior to inferior in 2 cassettes. (JSF/arj) Electronically Signed By John Cerda MD , Pathologist (Case signed 01/29/2017) [facility] SURGon 12-20-2016 SURG Name: DAVE MARTINEZ JResubmission due to incomplete transmission of the original reportSource A. Skin, Central Forehead, shave biopsy B. Skin, Right Anterior Neck, shave excision C. Skin, Posterior Neck, shave biopsy D. Skin, Right Upper Preauricular, shave biopsy Clinical History A) BCC, B) NUB (irr tag) C & D) BCC Diagnosis A. Basal cell carcinoma, superficial and nodular type. Deep margin extensively positive and peripheral margin focally positive for carcinoma. B. Intradermal nevus. C. Invasive squamous cell carcinoma, well-differentiated. Deep and peripheral margins negative for carcinoma. D. Basal cell carcinoma, infiltrative type. Deep margin extensively positive for carcinoma. Peripheral margin clear in the planes of examined sections. Gross Description A. The specimen received in formalin is a fragment measuring 1.2 x 1 x 0.2 cm. Serially sectioned. Totally submitted in one cassette. B. The specimen received in formalin is a fragment measuring 0.8 x 0.5 x 0.4 cm. Serially sectioned. Totally submitted in one cassette. C. The specimen received in formalin is a fragment measuring 1.1 x 0.8 x 0.3 cm. Serially sectioned. Totally submitted in one cassette. D. The specimen received in formalin is a fragment measuring 1.1 x 1.1 x 0.3 cm. Serially sectioned. Totally submitted in one cassette. DS/arj (GEO/arj) Electronically Signed By Oleg Naranjo DO , Pathologist (Case signed 12/22/2016) [facility] Vital Signs Date Time Vital Sign Value Performing Clinician Facility 11-05-2024 13:10-0400 Body height 177.[address] Caleb Richardson DO Work Phone: [facility] 11-05-2024 13:10-0400 Body mass index (BMI) [Ratio] 26.5 kg/m2 Dr. Caleb Richardson DO Work Phone: [facility] 11-05-2024 13:10-0400 Body temperature 96.8 [degF] Dr. Caleb Richardson DO Work Phone: [facility] 11-05-2024 13:10-0400 Body weight 83.[address] Caleb Richardson DO Work Phone: [facility] 11-05-2024 13:10-0400 Diastolic blood pressure 64 mm[Hg] Dr. Caleb Richardson DO Work Phone: [facility] 11-05-2024 13:10-0400 Heart rate 73 /min Dr. Caleb Richardson DO Work Phone: [facility] 11-05-2024 13:10-0400 Respiratory rate 18 /min Dr. Caleb Richardson DO Work Phone: [facility] 11-05-2024 13:10-0400 SaO2% (BldA) [Mass fraction] 94 % Dr. Caleb Richardson DO Work Phone: [facility] 11-05-2024 13:10-0400 Systolic blood pressure 110 mm[Hg] Dr. Caleb Richardson DO Work Phone: [facility] 10-30-2023 20:19-0400 Body height 177.8 cm Bassam Stallworth MD Work Phone: [facility] 10-30-2023 20:19-0400 Body mass index (BMI) [Ratio] 25.11 kg/m2 Bassam Stallworth MD Work Phone: [facility] 10-30-2023 20:19-0400 Body temperature 97.59 [degF] Bassam Stallworth MD Work Phone: [facility] 10-30-2023 20:19-0400 Body weight 79.38 kg Bassam Stallworth MD Work Phone: [facility] 10-30-2023 20:19-0400 Diastolic blood pressure 98 mm[Hg] Bassam Stallworth MD Work Phone: [facility] 10-30-2023 20:19-0400 Heart rate 90 /min Bassam Stallworth MD Work Phone: [facility] 10-30-2023 20:19-0400 Respiratory rate 20 /min Bassam Stallworth MD Work Phone: [facility] 10-30-2023 20:19-0400 SaO2% (BldA) [Mass fraction] 97 % Bassam Stallworth MD Work Phone: [facility] 10-30-2023 20:19-0400 Systolic blood pressure 142 mm[Hg] Bassam Stallworth MD Work Phone: [facility] 10-18-2022 13:33-0400 Body height 177.[address] Caleb Richardson Work Phone: [facility] 10-18-2022 13:33-0400 Body mass index (BMI) [Ratio] 27.8 kg/m2 Dr. Caleb Richardson Work Phone: [facility] 10-18-2022 13:33-0400 Body temperature 95.6 [degF] Dr. Caleb Richardson Work Phone: [facility] 10-18-2022 13:33-0400 Body weight 88.[address] Caleb Richardson Work Phone: [facility] 10-18-2022 13:33-0400 Diastolic blood pressure 86 mm[Hg] Dr. Caleb Richardson Work Phone: [facility] 10-18-2022 13:33-0400 Heart rate 81 /min Dr. Caleb Richardson Work Phone: [facility] 10-18-2022 13:33-0400 Respiratory rate 18 /min Dr. Caleb Richardson Work Phone: [facility] 10-18-2022 13:33-0400 SaO2% (BldA) [Mass fraction] 99 % Dr. Caleb Richardson Work Phone: [facility] 10-18-2022 13:33-0400 Systolic blood pressure 138 mm[Hg] Dr. Caleb Richardson Work Phone: [facility] 07-13-2022 15:37-0400 Body height 177.[address] Caleb Richardson Work Phone: [facility] 07-13-2022 15:37-0400 Body mass index (BMI) [Ratio] 29.1 kg/m2 Dr. Caleb Richardson Work Phone: [facility] 07-13-2022 15:37-0400 Body temperature 97 [degF] Dr. Caleb Richardson Work Phone: [facility] 07-13-2022 15:37-0400 Body weight 92.[address] Caleb Richardson Work Phone: [facility] 07-13-2022 15:37-0400 Diastolic blood pressure 84 mm[Hg] Dr. Caleb Richardson Work Phone: [facility] 07-13-2022 15:37-0400 Heart rate 70 /min Dr. Caleb Richardson Work Phone: [facility] 07-13-2022 15:37-0400 Respiratory rate 18 /min Dr. Caleb Richardson Work Phone: [facility] 07-13-2022 15:37-0400 SaO2% (BldA) [Mass fraction] 98 % Dr. Caleb Richardson Work Phone: [facility] 07-13-2022 15:37-0400 Systolic blood pressure 132 mm[Hg] Dr. Caleb Richardson Work Phone: [facility] 04-05-2022 13:12-0500 Body mass index (BMI) [Ratio] 29.5 kg/m2 Dr. Caleb Richardson Work Phone: [facility] 04-05-2022 13:12-0500 Body temperature 96.7 [degF] Dr. Caleb Richardson Work Phone: [facility] 04-05-2022 13:12-0500 Body weight 93.[address] Caleb Richardson Work Phone: [facility] 04-05-2022 13:12-0500 Diastolic blood pressure 80 mm[Hg] Dr. Caleb Richardson Work Phone: [facility] 04-05-2022 13:12-0500 Heart rate 83 /min Dr. Caleb Richardson Work Phone: [facility] 04-05-2022 13:12-0500 Respiratory rate 18 /min Dr. Caleb Richardson Work Phone: [facility] 04-05-2022 13:12-0500 SaO2% (BldA) [Mass fraction] 97 % Dr. Caleb Richardson Work Phone: [facility] 04-05-2022 13:12-0500 Systolic blood pressure 138 mm[Hg] Dr. Caleb Richardson Work Phone: [facility] 01-03-2022 13:43-0500 Body temperature 96.4 [degF] Dr. Caleb Richardson Work Phone: [facility] Work Phone: 01-03-2022 13:43-0500 Body weight 92.[address] Caleb Richardson Work Phone: [facility] Work Phone: 01-03-2022 13:43-0500 Diastolic blood pressure 82 mm[Hg] Dr. Caleb Richardson Work Phone: [facility] Work Phone: 01-03-2022 13:43-0500 Heart rate 82 /min Dr. Caleb Richardson Work Phone: [facility] Work Phone: 01-03-2022 13:43-0500 Respiratory rate 18 /min Dr. Caleb Richardson Work Phone: [facility] Work Phone: 01-03-2022 13:43-0500 SaO2% (BldA) [Mass fraction] 97 % Dr. Caleb Richardson Work Phone: [facility] Work Phone: 01-03-2022 13:43-0500 Systolic blood pressure 134 mm[Hg] Dr. Caleb Richardson Work Phone: [facility] Work Phone: Encounters Encounter Date Encounter Type Care Provider Facility Start: 11-05-2024 End: 11-05-[address] Caleb Richardson DO Work Phone: [facility] Start: 11-05-2024 End: 11-05-[address] Caleb Redman DO -[facility] Work Phone: Start: 05-07-2024 End: 05-07-2024 ambulatory Caleb Richardson Facility:[facility] Start: 11-07-2023 End: 11-07-2023 ambulatory Caleb Richardson Facility:[facility] Start: 10-30-2023 End: 10-30-2023 Emergency department patient visit [facility] Work Phone: Comment on above: Rash (Primary Dx) Start: 08-07-2023 End: 08-07-2023 ambulatory Caleb Richardson [facility] Start: 08-07-2023 End: 08-07-2023 ambulatory Caleb Richardson Facility:[facility] Start: 07-11-2023 End: 07-11-2023 ambulatory Caleb Richardson Facility:[facility] Start: 10-18-2022 End: 10-18-[address] Caleb Richardson Work Phone: [facility] Work Phone: Start: 10-18-2022 End: 10-18-[address] Caleb Richardson Work Phone: [facility] Work Phone: Start: 07-13-2022 End: 07-13-[address] Caleb Richardson Work Phone: [facility] Work Phone: Start: 07-13-2022 End: 07-13-[address] Caleb Richardson Work Phone: [facility] [place] Start: 07-13-2022 End: 07-13-[address] Caleb Richardson Work Phone: [facility] Start: 07-09-2022 End: 07-10-2022 Emergency department patient visit Provider Pending Facility:[id number] Start: 04-05-2022 End: 04-05-[address] Caleb Richardson Work Phone: [facility] Start: 01-09-2022 End: 01-09-[address] Caleb Richardson Work Phone: [facility] Work Phone: Start: 01-09-2022 End: 01-09-[address] Caleb Richardson Work Phone: [facility] Start: 01-03-2022 End: 01-03-[address] Caleb Richardson Work Phone: [facility] Work Phone: Start: 01-03-2022 End: 01-03-[address] Caleb Richardson Work Phone: [facility] [place] Start: 01-03-2022 End: 01-03-[address] Caleb Richardson Work Phone: [facility] Start: 02-04-2019 End: 02-04-2019 Patient encounter procedure [facility] Start: 07-10-2018 End: 07-10-2018 Patient encounter procedure [facility] Start: 01-24-2017 Ambulatory [facility] Facility :[place] Start: 01-24-2017 End: 01-24-2017 Ambulatory Alin Jasso Work Phone: [facility] Start: 12-21-2016 Ambulatory Alin Jasso Facility :[place] Start: 12-20-2016 End: 12-20-2016 Ambulatory Alin Jasso Work Phone: [facility] Procedures Date Procedure Procedure Detail Performing Clinician Start: 01-09-2022 X-ray of skull Dr. Abelino Richardson Work Phone: Start: 01-09-2022 Diagnostic radiograp hy of abdomen Dr. Caleb Richardson Work Phone: Start: 01-09-2022 End: 01-09-2022 Plain X-ray of tibia and fibula Dr. Caleb Richardson Work Phone: Plan of Treatment Date Care Activity Detail Author Start: 11-05-2024 CBC W Auto Differential panel - Blood [facility] Start: 11-05-2024 Comprehensive metabolic 2000 panel - Serum or Plasma [facility] Start: 11-05-2024 Lipid 1996 panel - Serum or Plasma [facility] Start: 10-21-2023 COVID-19 Vaccine ( season) COVID-19 Vaccine ( season) [facility] Start: 10-21-2023 Influenza vaccination Influenza Vaccine (#1) [facility] Start: 2005 Pneumococcal Vaccine: 65+ Years (1 of 1 - PCV) Pneumococcal Vaccine: 65+ Years (1 of 1 - PCV) [facility] Start: 2000 RSV patients and/or patients aged 60+ years (1 - 1-dose 60+ series) RSV patients and/or patients aged 60+ years (1 - 1-dose 60+ series) [facility] Start: 1990 Zoster Vaccines (1 of 2) Zoster Vaccines (1 of 2) [facility] Start: 1962 DTaP/Tdap/Td Vaccines (1 - Tdap) DTaP/Tdap/Td Vaccines (1 - Tdap) [facility] Start: 1940 Lipid panel Lipid Panel [facility] Start: 1940 Medicare Annual Wellness Visit Medicare Annual Wellness Visit (AWV) [facility] Alanine aminotransfe rase [Enzymatic activity/volume] in Serum or Plasma [facility] Albumin [Mass/volume ] in Serum or Plasma [facility] Alkaline phosphatase [Enzymatic activity/volume] in Serum or Plasma [facility] Anion gap in Serum o r Plasma [facility] Bilirubin, total measurement [facility] BUN/Creatinine ratio [facility] Calcium [Mass/volume ] in Serum or Plasma [facility] Carbon dioxide, tota l [Moles/volume] in Central venous blood [facility] Cholesterol [Mass/vo lume] in Serum or Plasma [facility] Cholesterol in HDL [Mass/volume] in Serum or Plasma [facility] Creatinine [Mass/vol ume] in Serum or Plasma [facility] Erythrocyte mean corpuscular volume determination [facility] Glucose [Mass/volume ] in Serum or Plasma [facility] Hematocrit [Volume Fraction] of Blood [facility] Hemoglobin [Mass/vol ume] in Blood [facility] Leukocytes [#/volume ] in Blood [facility] Low density lipoprot ein cholesterol measurement [facility] Mean corpuscular hem oglobin concentration determination [facility] Mean corpuscular hem oglobin determination [facility] Measurement of renal function [facility] Neutrophil count [facility] Neutrophil percent differential count [facility] Platelets [#/volume] in Blood [facility] Potassium measurement [facility] Red blood cell count [facility] Red cell distributio n width determination [facility] Serum chloride measurement [facility] Sodium measurement [facility] Thyroid stimulating hormone measurement [facility] Work Phone: Total cholesterol:HD L ratio measurement [facility] Total protein measurement [facility] Triglycerides measurement [facility] Urea nitrogen [Mass/ volume] in Serum or Plasma [facility] Vitamin D, 25-hydrox y measurement [facility] Work Phone: VLDL cholesterol measurement [facility] XR Chest and Abdomen Views [facility] Work Phone: XR Skull LE 3 Views [facility] Work Phone: XR Tibia and Fibula 2 Views [facility] Work Phone: [facility] Immunizations Immunization Date Immunization Notes Care Provider Fa maricarmen 02-05-2019 pneumococcal polysaccharide vaccine, [address] Caleb Richardson Work Phone: [facility] Payers Date Payer Category Payer Self-pay [id number] 2021 Medicare [employer] MEDICARE [employer] GOLD CHOICE [id number] 2021-Present [address] [address] [place] [address] [id number] 2016 Medicare [id number] 1940 Unknown [id number] 1940 Unknown [id number] 1940 Unknown [id number] 9 1940 Unknown [id number] 3 Unknown [id number] Unknown [id number] Unknown [id number] Unknown [id number] Unknown [id number] Unknown [id number] Unknown [id number] Social History Date Type Detail Facility Start: 01-25-2017 End: 10-18-2022 Tobacco smoking status NHIS Unknown if ever smoked [facility] Start: 1940 Sex Assigned At Not on file [facility] Work Phone: Start: 10-03-2016 None [facility] Start: 10-03-2016 Spouse/ Signif icant Other [facility] Start: 08-19-2018 [facility] Start: 1940 Sex Assigned At Male [facility] Gender identity Not on file [facility] Start: 10-20-2023 End: 10-30-2023 Exposure to SARS-CoV-2 (event) Not sure [facility] Work Phone: Start: 05-09-2023 Tobacco smoking status NHIS Smokes tobacco daily (finding) [facility] Clinical Notes 10-30-2023 to 11-05-2024 Note Date & Type Note Facility 11-05-2024 Progress note [facility] 11-05-2024 Progress note Note Date/Time November 05, 2024 2:00pm [facility] [address] [place] [address] [place] [address] OFFICE VISIT Date of Service: 11/05/24 MR#: [id number] Acct: [id number] Name: DAVE MARTINEZ Rep #: [id number] : 1940 Provider: Dr. Abelino Richardson, Age/Sex: 84/M Location[facility] Status: Signed Intake Vital Signs 05/07/24 13:39 11/05/24 13:10 Height 5 ft 10 in 5 ft 10 in Weight: 177 lb 185 lb BMI 25.4 26.5 BP 130/78 H 110/64 Blood Pressure Location Lt brachial Lt brachial Position Sitting Sitting Respiration 18 18 Pulse 76 73 Pulse Source Monitor Monitor Temp 98.4 F 96.8 F L Temp Source Temporal Temporal Pulse Oximetry (%) 97 94 Oxygen Delivery Method room air room air Intake Visit Reasons: 6 M FU Chief Complaint: 6 M FU Is patient in pain?: No Allergies amoxicillin (From Augmentin) Allergy (Verified 05/07/24 13:40) Rash clavulanic acid (From Augmentin) Allergy (Verified 05/07/24 13:40) Rash erythromycin base Allergy (Verified 05/07/24 13:40) Rash Penicillins Allergy (Verified 05/07/24 13:40) Rash metronidazole Adverse Reaction (Intermediate, Verified 05/07/24 13:40) Itching ranitidine (From Zantac) Adverse Reaction (Verified 05/07/24 13:40) Upset Stomach Medications ?Medication ?Instructions ?Recorded ?Confirmed ?Type azelastine 137 mcg (0.1 %) nasal 1 spray intranasal BI D #60 mL 12/23/20 11/05/24 Rx spray triamcinolone acetonide 0.1 % 1 applic topical BID 11/05/24 History topical cream finasteride 5 mg tablet 5 mg PO DAILY #90 tabs 05/0711/05/24 Rx metoprolol succinate 50 mg 50 mg PO DAILY blood pressu re #90 05/07/24 11/05/24 Rx tablet,extended release 24 hr tabs pravastatin 40 mg tablet 40 mg PO DAILY cholesterol # 90 tabs 05/07/24 11/05/24 Rx sulfacetamide sodium 10 % eye drops 1 drp ophthalmic ( eye) Q4H #15 mL 05/07/24 11/05/24 Rx upadacitinib 15 mg tablet,extended 7.5 mg PO QDAY 04/1911/05/24 History release 24 hr (Rinvoq) Have you fallen in the past year?: No PFSH Medical History History of skin cancer Seasonal allergies Hyperlipemia Hypertension Surgical History Status post Mohs surgery History of transurethral resection of prostate Family History Aunt Myocardial infarction, Onset Age: 60 Mother Cancer skin Breast cancer Social History Smoking Status: Current every day smoker alcohol intake: current alcohol intake frequency: 0-2 drinks per day what type of physical activity do you participate in: walking frequency: daily HPI HPI Chief Complaint: 6 M FU Details: DAVE MARTINEZ, is a 84 M who presents to the office today for routine office visit. He says he feels well has no complaints except he has a basal cell carcinoma on his right cheek that is going to be excised tomorrow. ROS Const Constitutional: No body ache, chills, excessive sweating, fatigue, fever(s), frequent falls, headache(s), snoring, weight change, sleep problems, abnormal sleep pattern or change in appetite Eyes Eyes: No blurry vision, change in vision, eye pain or Light sensitivity ENT ENT: No abnormal hearing, ear or mastoid pain, tinnitus, nasal congestion, headache(s), neck pain or sore throat Resp Respiratory: No cough, shortness of breath, snoring or wheezing Cardio Cardiology: No chest pain at rest, chest pain with exertion, excessive sweating,shortness of breath, dyspnea on exertion, lightheadedness, orthopnea or palpitations Gastro GI: No abdominal pain, change in bowel habits, constipation, cramping, diarrhea,nausea/dyspepsia or vomiting Genitourinary Male: No burning urination, painful urination, urinary incontinence or urinary frequency Musc Musculoskeletal: No abnormal gait, joint pain, back pain, limited range of motion, neck pain, numbness or tingling Skin Skin: No dry skin, redness, lesions, itchy eyes, rash or wounds Neuro Neurology: No abnormal gait, abnormal hearing, frequent falls, headache(s), memory loss, numbness or tingling Psych Psychiatric: No abnormal sleep pattern, No anxiety, No change in appetite, No irritability, No memory loss and No Thoughts of harming yourself/Others Endo Endocrine: No cold intolerance, excessive sweating, fatigue, flushing, heat intolerance, increased thirst/drinking, increased hunger or weight change Aller/Imm Allergy/Immunologic: No itchy eyes, seasonal allergy symptoms, hives or wheezing Abhay/Lymp Hematologic/Lymphatic: No easy bleeding, easy bruising, enlarged lymph nodes or other Exam Const General: cooperative, healthy appearing and comfortable Nutritional Appearance: average body habitus Orientation: oriented x3 HENMT Ears: hearing grossly impaired Eyes General: appearance normal, both eyes and all related structures Resp Effort & Inspection: normal respiratory effort, able to speak in complete sentences, symmetric chest movement, normal respiratory pattern and no audible wheezes Auscultation: Bilateral: Clear to Auscultation Cardio Rate: regular rate Rhythm: regular rhythm Pulses: radial pulses present bilaterally 2+ External: hernia (Patient has a small direct inguinal hernia on the right side) Skin General: no rashes or lesions noted, ecchymosis, erythema and scars (Several postsurgical scars.) Lesions: lesion noted (Small nodular basal cell on his right cheek.) Neuro General: patient oriented x3 Cranial Nerves: CN's II-XI intact bilaterally Extrem General: normal to inspection Psych Appearance: grossly normal Coding Level of Care Code Off vis,est,level 3 Diagnoses Mixed hyperlipidemia E78.2 Hyperlipidemia type: mixed hyperlipidemia Basal cell adenocarcinoma C44.91 Essential hypertension I10 Hypertension type: essential hypertension Assessment and Plan Assessment and Plan (1) Hyperlipemia: Status: Chronic Qualifiers: Hyperlipidemia type: mixed hyperlipidemia Qualified Code(s): E78.2 - Mixed hyperlipidemia Plan: He continues to take his statin for his elevated cholesterol and I have ordered blood work to check to see if it is an expected range. (2) Basal cell adenocarcinoma: Status: Acute Plan: He has an appointment with the supply person for the removal of the lesion on the right cheek as the biopsy was positive for adenocarcinoma. (3) Hypertension: Status: Chronic Qualifiers: Hypertension type: essential hypertension Qualified Code(s): I10 - Essential (primary) hypertension Plan: His blood pressure is very well-controlled. A chemistry profile was ordered. Orders: Orders CBC W/Diff, Automated Today I10 - Essential (primary) hypertension Comprehensive Metabolic Profil Today E78.2 - Mixed hyperlipidemia Lipid Profile Today E78.5 - Hyperlipidemia, unspecified Plan Details Follow Up: 6 Months Clinical Quality Measures Falls Risk Screening/Assistive Devices Have you fallen in the past year?: No 11/05/24 1400 <Electronically signed by Caleb kimball DO> Date _ Caleb Richardson DO Cosigner Signature: Date (if applicable) CC: ~ [facility] [employer] Work Phone: 1(575) 140-547909-10-2024 Hospital Discharge instructions* Discharge Instructions* Bassam Stallworth MD - 10/30/2023 8:30 PM EDT Return to the ER if you have any additional concerns. * Attachments The following attachments cannot be sent through Care Everywhere. * Skin Rash ED ([place]) documented in this [facility] Work Phone: 1(219) 981-229909-10-2024 Emergency department Note* Bassam Stallworth MD - 10/30/2023 8:00 PM EDT 83-year-old male presents with chief complaint of itchy rash progressive over the past 2 weeks. On his arms abdomen and back primarily. He denies any difficulty breathing or throat closing sensation.He does not recall coming into contact with anything out of the ordinary. He has been using Benadryl and multiple steroid creams without success. Review of Systems Physical Exam Vitals and nursing note reviewed. Constitutional: General: He is not in acute distress. Appearance: He is well-developed. HENT: Head: Normocephalic and atraumatic. Eyes: Conjunctiva/sclera: Conjunctivae normal. Cardiovascular: Rate and Rhythm: Normal rate and regular rhythm. Heart sounds: No murmur heard. Pulmonary: Effort: Pulmonary effort is normal. No respiratory distress. Breath sounds: Normal breath sounds. Abdominal: Palpations: Abdomen is soft. Tenderness: There is no abdominal tenderness. Musculoskeletal: General: No swelling. Cervical back: Neck supple. Skin: General: Skin is warm and dry. Capillary Refill: Capillary refill takes less than 2 seconds. Findings: Rash present. Rash is macular, papular and urticarial. Rash is not crusting, purpuric, pustular, scaling or vesicular. Comments: Diffuse rash arms chest and back. Neurological: Mental Status: He is alert. Psychiatric: Mood and Affect: Mood normal. Labs Reviewed - No data to display No orders to display Procedures Medical Decision Making Diagnoses as of 10/30/232030 Rash Bassam Stallworth MD 10/30/232030 [facility] Work Phone: 1(465) 371-381609-10-2024 Physician Emergency department Note* Bassam Stallworth MD - 10/30/2023 8:00 PM EDT 83-year-old male presents with chief complaint of itchy rash progressive over the past 2 weeks. On his arms abdomen and back primarily. He denies any difficulty breathing or throat closing sensation.He does not recall coming into contact with anything out of the ordinary. He has been using Benadryl and multiple steroid creams without success. Review of Systems Physical Exam Vitals and nursing note reviewed. Constitutional: General: He is not in acute distress. Appearance: He is well-developed. HENT: Head: Normocephalic and atraumatic. Eyes: Conjunctiva/sclera: Conjunctivae normal. Cardiovascular: Rate and Rhythm: Normal rate and regular rhythm. Heart sounds: No murmur heard. Pulmonary: Effort: Pulmonary effort is normal. No respiratory distress. Breath sounds: Normal breath sounds. Abdominal: Palpations: Abdomen is soft. Tenderness: There is no abdominal tenderness. Musculoskeletal: General: No swelling. Cervical back: Neck supple. Skin: General: Skin is warm and dry. Capillary Refill: Capillary refill takes less than 2 seconds. Findings: Rash present. Rash is macular, papular and urticarial. Rash is not crusting, purpuric, pustular, scaling or vesicular. Comments: Diffuse rash arms chest and back. Neurological: Mental Status: He is alert. Psychiatric: Mood and Affect: Mood normal. Labs Reviewed - No data to display No orders to display Procedures Medical Decision Making Diagnoses as of 10/30/232030 Rash Bassam Stallworth MD 10/30/232030 [facility] Work Phone: Evaluation note* Diagnosis Onset Date Resolution Status Alkaline phosphatase elevation acute Inguinal hernia of right naren e with obstruction and without gangrene acute Seborrheic keratosis, inflamed acute Hypertension [facility] Work Phone: Evaluation note* Diagnosis Onset Date Resolution Status Alkaline phosphatase elevation acute Seborrheic keratosis, inflamed acute Easy bruisability acute Seborrheic keratosis, inflamed acute Hypertension chronic [facility] Work Phone: Evaluation note* Diagnosis Onset Date Resolution Status Easy bruisability acute Seborrheic keratosis, inflamed acute Hypertension chronic Alkaline phosphatase elevation acute Easy bruisability acute History of skin cancer acute Hyperlipemia chronic Hypertension chronic [facility] Work Phone: Evaluation note* Diagnosis Rash- Primary Rash and other nonspecific skin eruption documented in this encounter [facility] Work Phone: Evaluation note* Diagnosis Onset Date Resolution Status Admit Date Basal cell adenocarcinoma acute November 05, 2024 12:58pm Hyperlipemia chronic November 052024 12:58pm Hypertension chronic November 052024 12:58pm [facility] Work Phone: Reason for referral (narrative)No reason for referral information available[facility] Work Phone: Summary Purpose Family History Relationship Condition Age at Onset Recorded Date/T alex aunt Myocardial infarction 60 mother Malignant neoplasm Unknown Malignant neoplasm of breast Unknown Advance Directives Advance Directive Response Recorded Date/ Time Living Will Yes June 02, 2020 11:17am Power of Electrical Engineering Designer Yes June 02 11:17am Advance Directive Response Recorded Date/ Time Living Will Yes June 02, 2020 12:17pm Power of Electrical Engineering Designer Yes June 02 12:17pm Chief Complaint and Reason for Visit Chief Complaint 6 M FU Reason for Visit Alkaline phosphatase elevation Inguinal hernia of right side with obstruction and without gangrene Seborrheic keratosis, inflamed Hypertension Chief Complaint 6 M FU ELEVATED ALK PHOS Reason for Visit Alkaline phosphatase elevation Inguinal hernia of right side with obstruction and without gangrene Seborrheic keratosis, inflamed Hypertension Chief Complaint FOLLOW UP 3 M FU Reason for Visit Alkaline phosphatase elevation Seborrheic keratosis, inflamed Easy bruisability Seborrheic keratosis, inflamed Hypertension Chief Complaint 3 M FU 3 M FU Reason for Visit Easy bruisability Seborrheic keratosis, inflamed Hypertension Alkaline phosphatase elevation Easy bruisability History of skin cancer Hyperlipemia Hypertension Chief Complaint Admit Date 6 M FU November 05, 2024 12:58pm Reason for Visit Admit Date Basal cell adenocarcinoma October 12:58pm Hyperlipemia November 05, 2024 12:58pm Hypertension November 05, 2024 12:58pm Additional Source Comments (unrecognized sect ion and content) No Status Records FoundNo Status Records FoundNo Status Records FoundNo Status Records FoundNo Status Records FoundNo Status Records Found INFORMATION SOURCE (unrecogn ized section and content) DATE CREATED AUTHOR 08/14/2017 [facility] DATE CREATED AUTHOR AUTHOR'S ORGANIZ ATION 11/22/2018 [facility] DATE CREATED AUTHOR AUTHOR'S ORGANIZ ATION 02/05/[address] [facility] DATE CREATED AUTHOR AUTHOR'S ORGANIZ ATION 07/28/2022 [facility] DATE CREATED AUTHOR AUTHOR'S ORGANIZ ATION 11/05/2023 [facility] DATE CREATED AUTHOR AUTHOR'S ORGANIZ ATION 05/09/2024 [facility] Goals (unrecognized section and content) Goals may be documented in a n alternate sectionGoals may be documented in an alternate sectionGoals may be documented in an alternate sectionGoals may be documented in an alternate sectionGoals may be documented in an alternate section Care Teams (unrecognized sec tion and content) Team Status: Active Member Role Status Dates Dr. Caleb Richardson DO Family Provider Active Dr. Caleb Richardson DO Primary Care Provider Active Team Status: Inactive Member Role Status Dates Dr. Caleb Richardson DO Primary Care Pr ovider, Attending Provider, Referring Provider Active Team Status: Inactive Member Role Status Dates Dr. Caleb Richardson DO Primary Care Provider, Attend ing Provider Active Solution Mixer Relationship Specialty Start Date End Date Caleb Richardson DO [address] [place] [address] PCP - General Family Medicine 10/30/23 Team Status: Active Member Role/Relationship Status Dates Dr. Caleb Richardson DO Primary care physician Active Team Status: Inactive Member Role/Relationship Status Dates Dr. Caleb Richardson DO Primary care physician Active Start: November 05, 2024 End: November 05, 2024 Dr. Caleb Richardson , DO Attending physician Active Start: November 05, 2024 End: November 05, 2024 Dr. Caleb Richardson DO Referring Provider Active Start: November 05, 2024 End: November 05, 2024 Team Status: Active Member Role/Relationship Status Dates Dr. Caleb Richardson DO Primary care physician Active Start: November 05, 2024 Dr. Caleb Richardson , DO Attending physician Active Start: November 05, 2024 Dr. Caleb Richardson DO Referring Provider Active Start: November 05, 2024 Reason for Visit (unrecogniz ed section and content) Reason Comments Itching Pt c/o intermittent widespread rash/hives over the span over a year, has seen dermatology who gave him a cream but that never helped. States the last 2 weeks it has increased in severity, and tonight even worse. States he takes 1 benadryl every night before bed but it doesn't help the itching stop. Scheduled Active and Recently Administ ered Medications (unrecognized section and content) Medication Order 10/28/2023 10/29/2023 10/30/2023 triamcinolone acetonide (Kenalog-40) injection 80 mg (COMPLETED) 80 mg, intramuscular, Once, On Sun10/30/23 at 2030, For 1 dose 2034 (Given - Provid er: Shawna Marr RN) FOR RECORDS PERTAINING TO PATIENTS WHO ARE OR HAVE BEEN ENROLLED IN A CHEMICAL DEPENDENCY/SUBSTANCEABUSE PROGRAM, SOME INFORMATION MAY BE OMITTED. This clinical summary was aggregated from multiple sources. Caution should be exercised in using it in the provision of clinical care. This summary normalizes information from multiple sources, and as a consequence, information in this document may materially change the coding, format and clinical context of patient data. In addition, data may be omitted in some cases. CLINICAL DECISIONS SHOULD BE BASED ON THE PRIMARY CLINICAL RECORDS. [employer] provides no warranty or guarantee of the accuracy or completeness of information in this document.
== END | disposition home or self-care (01) ==
LOC: BIMLAB 13:54
PROVIDERS: PCP Family Medicine; Referring Provider Family Medicine; Visit Provider Family Medicine
DX: I10 Essential (primary) hypertension (principal); E78.2 Mixed hyperlipidemia
CPT/HCPCS: 36415; 80053; 80061; 85025